=== PATIENT | female | born 1995 | race Caucasian/White ===

== ENCOUNTER 2018-05-25 21:37 | Outpatient (REF) | payer MEDICARE, MEDICAID, SELFPAY ==
[2018-05-27 12:26] LABS: Chlamydia Result Negative; GC Result Negative; Specimen Description URINE
== END 2018-05-25 21:57 ==
LOC: NCHCN 21:37
PROVIDERS: PCP Family Medicine; Visit Provider Family Medicine
DX: Z11.3 Encounter for screening for infections with a predominantly sexual mode of transmission (principal)
CPT/HCPCS: 87491; 87591

== ENCOUNTER 2019-04-11 11:39 | Outpatient (REF) | payer MEDICARE, MEDICAID, SELFPAY ==
[2019-04-11 21:52] LABS: TSH 1.39 uIU/mL (0.36-3.74)
[2019-04-11 21:58] LABS: Hemoglobin A1C 5.6 % (4.5-6.2)
[2019-04-11 22:02] LABS: HCG Quant, Pregnancy < 1 mIU/mL (1-3)
[2019-04-13 09:50] LABS: FSH 7.6 mIU/mL (See Note); Prolactin 9.4 ng/mL (See Table)
[2019-04-13 14:29] LABS: Chlamydia Result Negative (Negative)
[2019-04-13 16:17] LABS: GC Result Negative (Negative)
[2019-04-14 14:19] LABS: Testosterone, Total 51 ng/dL (8-60)
== END 2019-04-11 11:59 ==
LOC: NCHCN 11:39
PROVIDERS: PCP Family Medicine; Visit Provider Registered Nurse
DX: E66.9 Obesity, unspecified (principal); Z86.32 Personal history of gestational diabetes; Z11.3 Encounter for screening for infections with a predominantly sexual mode of transmission; N91.1 Secondary amenorrhea
CPT/HCPCS: 84403; 87491; 87591; 83001; 83036; 84146; 84443; 84702

== ENCOUNTER 2022-12-01 11:40 | Outpatient (REF) | payer MEDICAID, SELFPAY | END 2022-12-01 11:41 | disposition home or self-care (01) | LOC: LBN 11:40 | PROVIDERS: PCP Family Medicine; Visit Provider Advanced Practice Midwife | DX: N93.9 Abnormal uterine and vaginal bleeding, unspecified (principal) | CPT/HCPCS: 87480; 87510; 87660 ==

== ENCOUNTER 2022-12-08 03:10 | Outpatient (CLI) | payer MEDICAID, SELFPAY ==
[2022-12-08 14:49] LABS: Panorama Kit Sent via Fed Ex
[2022-12-08 14:55] LABS: Abs Immature Grans 0.05 10^3/uL (0.0-0.06); Absolute Basophil Count 0.02 10^3/uL (0.0-0.2); Absolute Eosinophil Count 0.04 10^3/uL (0.0-0.7); Absolute Lymphocyte Count 1.98 10^3/uL (1.2-3.4); Absolute Monocyte Count 0.28 10^3/uL (0.1-0.8); Basophils % 0.2; Eosinophils % 0.4; HCT 39.7 % (36.0-46.0); HGB 13.4 g/dL (11.2-15.7); Immature Grans % 0.5; Lymphocytes % 18.1; MCH 29.5 pg (27.0-33.0); MCHC 33.8 % (32.0-36.0); MCV 87 fL (80-95); MPV 9.2 fL (8.0-11.0); Monocytes % 2.6; Neutrophils % 78.2; Platelet Count 221 10^3/uL (130-400); RBC 4.55 10^6/uL (3.93-5.22); RDW 12.7 % (11.7-14.6); RDW-SD 40.4 fL; WBC 10.96 10^3/uL (4.4-10.8)
[2022-12-08 14:59] LABS: Absolute Neutrophil Count 8.57 10^3/uL (1.2-6.7)
[2022-12-08 15:01] LABS: *AMPHETAMINES SCREEN URINE Negative (Negative); *BARBITURATES SCREEN URINE Negative (Negative); *BENZODIAZEPINES SCREEN URINE Negative (Negative); Cannabinoids THC Negative (Negative); Cocaine Screen,Urine Negative (Negative); METHADONE URINE SCREEN Negative (Negative); OPIATES URINE SCREEN Negative (Negative); Tricyclic Antidepressants Negative (Negative)
[2022-12-08 15:09] LABS: Glucose,1 Hr (Glucola) 133 mg/dL (80-140)
[2022-12-09 11:26] LABS: Rubella IgG Ab (UVM) Positive (See Note); Varicella IgG Antibody Positive (See Note)
[2022-12-09 11:36] LABS: Hepatitis B Surface Ag Negative (Negative); Hepatitis C Ab w Rflx HCV PCR Negative (Negative)
[2022-12-09 12:28] LABS: HIV-1/2 Ag & Ab Screen Negative (Negative)
[2022-12-10 17:48] LABS: Syphilis IgG w/Reflex Nonreactive (Nonreactive)
[2022-12-13 05:32] LABS: Buprenorphine Negative ng/mL (Cutoff: 5.0); Norbuprenorphine Negative ng/mL (Cutoff: 2.5)
[2022-12-18 15:18] LABS: Result Summary NEGATIVE; Specimen WB Whole Blood
== END 2022-12-08 03:11 | disposition home or self-care (01) ==
PROVIDERS: PCP Family Medicine; Visit Provider Advanced Practice Midwife
DX: Z34.91 Encounter for supervision of normal pregnancy, unspecified, first trimester; R82.998 Other abnormal findings in urine
CPT/HCPCS: 36415; 80307; 80348; 81220; 81222; 82950; 86787; 86803; 86850; 86900; 86901; 87340; 87389; 85025; 86762; 86780; 87086

== ENCOUNTER 2022-12-28 21:17 | Emergency (ER) | payer MEDICAID, SELFPAY ==
[2022-12-28 21:25] VITALS: BP 152/75; PULSE 73; RESP 20; TEMP 36.8; O2SAT 99
[2022-12-28] MEDS: Normal Saline 1,000 ML 1000 ML IV (22:23)
[2022-12-28 22:30] LABS: Abs Immature Grans 0.08 10^3/uL (0.0-0.06); Absolute Basophil Count 0.03 10^3/uL (0.0-0.2); Absolute Eosinophil Count 0.06 10^3/uL (0.0-0.7); Absolute Lymphocyte Count 2.49 10^3/uL (1.2-3.4); Absolute Monocyte Count 0.58 10^3/uL (0.1-0.8); Basophils % 0.3; Eosinophils % 0.5; HCT 38.4 % (36.0-46.0); HGB 12.9 g/dL (11.2-15.7); Immature Grans % 0.7; Lymphocytes % 21.6; MCH 29.1 pg (27.0-33.0); MCHC 33.6 % (32.0-36.0); MCV 87 fL (80-95); MPV 9.1 fL (8.0-11.0); Neutrophils % 71.9; Platelet Count 236 10^3/uL (130-400); RBC 4.44 10^6/uL (3.93-5.22); RDW 12.8 % (11.7-14.6); WBC 11.55 10^3/uL (4.4-10.8)
[2022-12-28 22:40] LABS: Bilirubin Negative (Negative); Blood Trace-intact (Negative); Clarity Sl Cloudy (Clear); Glucose Negative (Negative); Ketones Negative (Negative); Leukocyte Esterase Small (Negative); Nitrite Negative (Negative); Urobilinogen 0.2 mg/dL (Up to 0.2)
[2022-12-28 22:49] LABS: Bacteria Few HPF (Negative); C & S Indicated? No/Sq. Contamination; Crystals Negative HPF (Negative); Epithelial Cells Many HPF (Negative); Mucus Negative (Negative); RBC 0-2 HPF (0-2)
[2022-12-28 23:03] LABS: ALT 17 U/L (14-59); AST 14 U/L (15-37); Albumin 3.4 g/dL (3.4-5.0); Alkaline Phosphatase 73 U/L (46-116); Anion Gap 10.6 mmol/L (3-11); BUN 6 mg/dL (7-18); Bilirubin, Total 0.3 mg/dL (0.2-1.0); CO2 26.4 mmol/L (21.0-32.0); CREATININE 0.7 mg/dL (0.55-1.02); Calcium 9.1 mg/dL (8.5-10.1); Chloride 100 mmol/L (98-107); Estimated GFR 119.99 (mL/min/1.73m2); Glucose 98 mg/dL (74-106); Magnesium 1.7 mg/dL (1.8-2.4); Potassium 3.5 mmol/L (3.5-5.1); Sodium 137 mmol/L (136-145); Total Protein 7.7 g/dL (6.4-8.2)
[2022-12-28 23:07] LABS: HCG Quant, Pregnancy 29508 mIU/mL (1-3)
--- NOTE | 2022-12-28 23:27 | W.ED.GENAD ---
Discharge Plan Disposition Patient Disposition: Home Discharge Details Clinical Impression: Vaginal spotting, Primary Care Provider: Adelita Marr ED Provider: Jarvis Bullard Home Meds and New Rx's Prescriptions: Continued aspirin 81 mg tablet,delayed release (DR/EC) 81 mg PO DAILY Qty: 90 3RF Rx Instructions: one tab daily and 2 tabs every other day, start at 12 wks [facility] Nourish Pls 120 mcg- 33.3 mg tablet,chewable 1 tab PO DAILY Qty: 90 3RF Rx Instructions: May substitute for any chewable vitamin with folic acid Discharge Instructions Additional Instructions: At this time unofficial bedside ultrasound shows a appropriate heart rate and appropriate movements. Please continue to monitor your symptoms return immediately for any new or significant worsening of your symptoms otherwise follow-up with [facility] along with your ultrasound that was already ordered for tomorrow. Referrals: [facility] [Provider Group] (As previously arranged) Discharge Data Discharge Date/Time-TO BE ENTERED AT DEPARTURE: 12/29/22 00:01 Medical Decision Making Patient presenting to the emergency department for chief complaint of spotting during . Patient reports that last week she started having some spotting during her which she is approximately 14 weeks along. Patient denies all other symptoms except for some mild abdominal cramping and low back pain. Patient was seen by [facility] late last week for same issue and no emergent findings were noted and patient is pending a ultrasound tomorrow. Physical exam is unremarkable, of note we deferred any vaginal exam at this time. We will plan on checking patient's labs, urinalysis, and heart tones. Reviewed patient's labs and patient has slight leukocytosis and elevated neutrophils otherwise nondiagnostic, CMP shows BUN of 6, mag slightly low at 1.7 which we will orally replete and slightly low AST of 14 otherwise nondiagnostic labs, urinalysis does show trace intact blood and small amount of leukocyte Estrace but specimen does look contaminated with significant amount of epithelial cells. I doubt patient has a urinary tract infection at this time. Beta quant is 29,508. And patient is O+ did perform unofficial bedside ultrasound and did see positive movements with normal-appearing heart rate. Doppler was utilized by nursing staff and heart tones [id number] We will plan on discharging patient for follow-up and official ultrasound tomorrow but did discussed return and follow-up precautions to the emergency department. After discussion of diagnosis and plan of care patient has no further needs, questions, or concerns and states clear understanding to return to the emergency department for any worsening symptoms. This documentation was generated using F-Origination system, please disregard any oddities of phrase or misspellings. HPI General Mode of arrival: ambulatory. Date/Time Provider Initiated Documentation: 12/28/22 21:34. Limitations to Documentation: no limitations. Information obtained by: patient, family, RN notes reviewed and old records reviewed. History of Present Illness 27 year old F presents to the emergency department with the chief complaint of Spotting during , described as mild and similar to prior episodes, Patient started experiencing this day(s) (5) and it has been intermittent. No relieving factors improve symptom(s), Patient notes no other symptoms.. Patient did receive the following treatments prior to arrival, none Related Data Home Medications Medication Instructions Recorded Confirmed multivit with minerals-folic acid 1 tab PO DAILY #90 tabs 10/22/22 12/28/22 120 mcg-dha 33.3 mg chewable tablet ([facility] Nourish Plus) aspirin 81 mg tablet,delayed 81 mg PO DAILY #90 tabs 12/08/22 12/28/22 release Previous Rx's Medication Instructions Recorded multivit with minerals-folic acid 1 tab PO DAILY #90 tabs 10/22/22 120 mcg-dha 33.3 mg chewable tablet ([place] Good Start Nourish Plus) aspirin 81 mg tablet,delayed 81 mg PO DAILY #90 tabs 12/08/22 release Allergies Allergy/AdvReac Type Severity Reaction Status Date / Time Penicillins Allergy Unknown Skin Rash Unverified 12/29/22 13:25 General Stated Complaint: Abd Prob ANGELIC: 3 Review of Systems Cardiovascular Cardiovascular: Denies chest pain, Denies syncope and Denies lightheadedness Gastrointestinal Gastrointestinal: Denies abdominal pain, Reports constipation, Denies diarrhea, Denies nausea and Denies vomiting Genitourinary Genitourinary: Reports as per HPI, Denies hematuria and Denies dysuria Musculoskeletal Musculoskeletal: Reports back pain Integumentary/Breasts Skin/Breast: Denies rash Neurologic Neurologic: Denies syncope PFSH All Active Problems (Updated 08/21/23 @ 23:38 by Jarvis Bullard NP) Vaginal spotting (Acute) @ 13 wks Penicillin adverse reaction (Acute) (Acute) Anxiety and depression (Chronic) Surgical History No pertinent past surgical history Social History Smoking/Tobacco Use Status: Never Smoking risk assessment performed?: Yes Alcohol Intake: current Alcohol Intake frequency: holidays/special occasions only Drug use: Never Household members: family Number of Children: 2 current occupation: Manager [employer] Sexually active: Yes Do you think of yourself as: straight/heterosexual Current gender identity: female Female Reproductive History Menstrual control method: none History History 3 Para 2 Hx # Term Pregnancies 2 Multiple births 0 Hx # Pregnancies 0 Ectopic pregnancies 0 AB induced 0 Hx Number of Living Children 2 AB spontaneous 0 Past Pregnancies Del. Date GA/Weeks # Preg Succ Route Wgt Sex Labor Lgth Anesthesia Location [facility] 12/13/15 39 No Yes vaginal 2948.35 g Female >24 hrs [facility] 05/23/17 40 No Yes vaginal 3345.244 g Female 3 hrs [facility] Delivery Date: 12/13/15 Last Updated by: Roxi Cruz GDM diet controlled, spont labor, pushed 3 hrs, unmedicated labor, not a good experience, [facility] Delivery Date: 05/23/17 Last Updated by: Roxi Cruz Fast , a good experience, [facility] Exam Const General: cooperative Orientation: alert, awake and oriented x3 Resp Effort & Inspection: normal respiratory effort and able to speak in complete sentences Auscultation: clear to auscultation bilaterally Cardio Rate: regular rate Rhythm: regular rhythm Heart Sounds: S1 normal and S2 normal GI Palpation: soft, not firm, no guarding, not rigid, no splenomegaly and nontender Auscultation: normal bowel sounds Back/Spine/Pelvis Back: no CVA tenderness Neuro General: patient alert, patient awake, patient oriented x3, gait normal and moves all extremities Course Vital Signs Vital signs: Vital Signs Temperature 36.8 C 12/28/22 21:25 Pulse 73 12/28/22 21:25 Respiratory Rate 20 12/28/22 21:25 Blood Pressure 152/75 H 12/28/22 21:25 Pulse Oximetry 99 12/28/22 21:25 Temperature 36.8 C 12/28/22 21:25 Temperature Source Skin 12/28/22 21:25 Pulse 73 12/28/22 21:25 Respiratory Rate 20 12/28/22 21:25 Respiratory Effort Normal 12/28/22 21:37 Blood Pressure 152/75 H 12/28/22 21:25 Blood Pressure Position Sitting 12/28/22 21:25 Pulse Oximetry 99 12/28/22 21:25 Lab/Test Results Lab/Test Results: Laboratory Tests Range/Units 12/28/22 12/28/22 12/28/22 21:30 22:20 22:20 WBC (4.4-10.8) 10^3/uL 11.55 H RBC (3.93-5.22) 10^6/uL 4.44 Hgb (11.2-15.7) g/dL 12.9 Hct (36.0-46.0) % 38.4 MCV (80-95) fL 87 MCH (27.0-33.0) pg 29.1 MCHC (32.0-36.0) % 33.6 RDW (11.7-14.6) % 12.8 Plt Count (130-400) 10^3/uL 236 MPV (8.0-11.0) fL 9.1 Immature Gran % 0.7 Neutrophils % 71.9 Lymphocytes % 21.6 Monocytes % 5.0 Eosinophils % 0.5 Basophils % 0.3 Nucleated RBC % (0.0-0.3) % 0.0 Absolute Neutrophils (1.2-6.7) 10^3/uL 8.30 H Absolute Lymphocytes (1.2-3.4) 10^3/uL 2.49 Absolute Monocytes (0.1-0.8) 10^3/uL 0.58 Absolute Eosinophils (0.0-0.7) 10^3/uL 0.06 Absolute Basophils (0.0-0.2) 10^3/uL 0.03 Sodium (136-145) mmol/L 137 Potassium (3.5-5.1) mmol/L 3.5 Chloride (98-107) mmol/L 100 Carbon Dioxide (21.0-32.0) mmol/L 26.4 Anion Gap (3-11) mmol/L 10.6 BUN (7-18) mg/dL 6 L Creatinine (0.55-1.02) mg/dL 0.7 Est GFR (CKD-EPI 2020) (mL/min/1.73m2) 119.99 Glucose (74-106) mg/dL 98 Calcium (8.5-10.1) mg/dL 9.1 Magnesium (1.8-2.4) mg/dL 1.7 L Total Bilirubin (0.2-1.0) mg/dL 0.3 AST (15-37) U/L 14 L ALT (14-59) U/L 17 Alkaline Phosphatase (46-116) U/L 73 Total Protein (6.4-8.2) g/dL 7.7 Albumin (3.4-5.0) g/dL 3.4 Beta HCG, Quant (1-3) mIU/mL 32033 H Urine Color (Yellow) Yellow Urine Clarity (Clear) Sl Cloudy Urine pH (5-8) 7.0 Ur Specific [place] (1.005-1.025) 1.010 Urine Protein (Negative) mg/dL Negative Urine Ketones (Negative) mg/dL Negative Urine Blood (Negative) Trace-intact H Urine Nitrite (Negative) Negative Urine Bilirubin (Negative) Negative Urine Urobilinogen (Up to 0.2) mg/dL 0.2 Ur Leukocyte Esterase (Negative) Small H Urine RBC (0-2) HPF 0-2 Urine WBC (0-5) HPF 5-10 Ur Epithelial Cells (Negative) HPF Many Urine Crystals (Negative) HPF Negative Urine Bacteria (Negative) HPF Few Urine Mucus (Negative) Negative Ur Culture Indicated? No/Sq. Contamination Urine Glucose (Negative) mg/dL Negative Patient ABO/Rh Range/Units 12/28/22 22:20 WBC (4.4-10.8) 10^3/uL RBC (3.93-5.22) 10^6/uL Hgb (11.2-15.7) g/dL Hct (36.0-46.0) % MCV (80-95) fL MCH (27.0-33.0) pg MCHC (32.0-36.0) % RDW (11.7-14.6) % Plt Count (130-400) 10^3/uL MPV (8.0-11.0) fL Immature Gran % Neutrophils % Lymphocytes % Monocytes % Eosinophils % Basophils % Nucleated RBC % (0.0-0.3) % Absolute Neutrophils (1.2-6.7) 10^3/uL Absolute Lymphocytes (1.2-3.4) 10^3/uL Absolute Monocytes (0.1-0.8) 10^3/uL Absolute Eosinophils (0.0-0.7) 10^3/uL Absolute Basophils (0.0-0.2) 10^3/uL Sodium (136-145) mmol/L Potassium (3.5-5.1) mmol/L Chloride (98-107) mmol/L Carbon Dioxide (21.0-32.0) mmol/L Anion Gap (3-11) mmol/L BUN (7-18) mg/dL Creatinine (0.55-1.02) mg/dL Est GFR (CKD-EPI 2020) (mL/min/1.73m2) Glucose (74-106) mg/dL Calcium (8.5-10.1) mg/dL Magnesium (1.8-2.4) mg/dL Total Bilirubin (0.2-1.0) mg/dL AST (15-37) U/L ALT (14-59) U/L Alkaline Phosphatase (46-116) U/L Total Protein (6.4-8.2) g/dL Albumin (3.4-5.0) g/dL Beta HCG, Quant (1-3) mIU/mL Urine Color (Yellow) Urine Clarity (Clear) Urine pH (5-8) Ur Specific [place] (1.005-1.025) Urine Protein (Negative) mg/dL Urine Ketones (Negative) mg/dL Urine Blood (Negative) Urine Nitrite (Negative) Urine Bilirubin (Negative) Urine Urobilinogen (Up to 0.2) mg/dL Ur Leukocyte Esterase (Negative) Urine RBC (0-2) HPF Urine WBC (0-5) HPF Ur Epithelial Cells (Negative) HPF Urine Crystals (Negative) HPF Urine Bacteria (Negative) HPF Urine Mucus (Negative) Ur Culture Indicated? Urine Glucose (Negative) mg/dL Patient ABO/Rh O Positive
[2022-12-28] MEDS: Magnesium Oxide 400 MG TAB PO (23:57)
[2022-12-29] VITALS: BP 140/70; PULSE 70; RESP 16; O2SAT 98
== END 2022-12-29 00:01 | disposition home or self-care (01) ==
PROVIDERS: Emergency Provider Nurse Practitioner Family; PCP Family Medicine
DX: R10.9 Unspecified abdominal pain (principal); O26.851 Spotting complicating pregnancy, first trimester; Z3A.12 12 weeks gestation of pregnancy
CPT/HCPCS: 36415; 80053; 86900; 86901; 96360; 99284; 81003; 81015; 83735; 84702; 85025

== ENCOUNTER → 2022-12-29 12:38 | Outpatient (CLI) | payer MEDICAID, SELFPAY ==
--- NOTE | 2022-12-29 08:25 | DI.US_ITS ---
Exam(s) US OB CERVICAL LENGTH EXAM: US OB CERVICAL LENGTH CLINICAL HISTORY: bleeding and cramping at 14 weeks, vaginal spotting, N93.9, Z34.90. TECHNIQUE: Transvaginal cervical length determination ultrasound was performed. COMPARISON: US POCUS EXAM from 12/01/2022 FINDINGS: There is a single viable intrauterine gestation with cardiac activity identified-141 BPM. Plac enta is anterior-fundal. No evidence of placenta previa. Distance from the tip of the placenta to t he internal cervical os is 5.9 cm on today's study. Cervical length measurements average 4.7 cm 3 measurements were obtained including 4.6 cm, 4.7 cm and 4.8 cm. The cervical canal is closed but there is trace fluid within the endocervical canal noted. Dating parameters places at approximately 15 weeks and 2 days gestational age implying LEOBARDO of 06/20/2023. BPD measures 15 weeks and 1 day Head circumference measures 15 weeks and 1 day Abdominal circumference measures 15 weeks and 3 days Femur length measures 15 weeks and 2 days IMPRESSION: Cervical length is 4.7. The endocervical is closed. There is trace amount of fluid in the endocervical canal. DATA REPOSITORY:
== END ==
PROVIDERS: PCP Family Medicine; Visit Provider Advanced Practice Midwife
DX: N93.9 Abnormal uterine and vaginal bleeding, unspecified (principal)
CPT/HCPCS: 76815

== ENCOUNTER → 2023-02-01 01:36 | Outpatient (CLI) | payer MEDICAID, SELFPAY ==
--- NOTE | 2023-02-01 08:15 | DI.US_ITS ---
Exam(s) US OB 2-3 TRIMESTER EXAM: US OB 2-3 TRIMESTER CLINICAL HISTORY: 19 week anatomy survey,Z34.91,Z34.90. TECHNIQUE: Transabdominal obstetrical ultrasound was performed. COMPARISON: US US OB CERVICAL LENGTH from 12/29/2022 FINDINGS: There is a single viable intrauterine gestation with cardiac activity identified-131 bpm. Amniotic fluid: There is a normal amount of amniotic fluid. Placental location: The placenta is anterior grade 1,with no evidence of placenta previa.Distance fro m tip of placenta to the internal cervical os is 6 cm on today's study ANATOMY: A 3 vessel umbilical cord is seen. A four-chamber cardiac view was obtained. Right and left ventricular outflow tracts were imaged. There are no obvious abnormalities of the spinal column evident. There is no obvious abnormal ity of the anterior abdominal wall. stomach and urinary bladder are identified and there is no evidence of hydronephrosis. No abnormalities of the upper lip region are identified. No evidence of choroid plexus cysts i n the brain. Dating parameters place this at approximately 19 weeks and 3 days gestational age. BPD measures 18 weeks and 6 days HC measures 19 weeks and 3 days AC measures 19 weeks and 2 days FL measures 19 weeks and 6 days Estimated weight is 297 gm-0 pounds, 10 ounces Fetus is at the 67th percentile on the Hadlock scale. IMPRESSION:: Single viable intrauterine gestation which is approximately 19 weeks and 3 days gestati onal age, implying an LEOBARDO of 06/25/2023. There are no obvious anomalies evident on today's study. The placenta is anterior with no evidence of placenta previa. There is a normal amount of amniotic fluid. DATA REPOSITORY:
== END ==
PROVIDERS: PCP Family Medicine; Visit Provider Advanced Practice Midwife
DX: Z34.91 Encounter for supervision of normal pregnancy, unspecified, first trimester
CPT/HCPCS: 76805

== ENCOUNTER 2023-03-15 14:30 | Outpatient (CLI) | payer MEDICAID, SELFPAY ==
--- OUTSIDE RECORDS SUMMARY | 2023-03-15 14:33 | XMS_ITS | CCD ---
Author Name Unknown Address [address] [place] [address] [id number] Organization Unknown Address [address], [place] [id number] Care Team Providers Care Yard Demurrage Clerk Name Role Phone WIL BECKMAN Attending Physician [phone] WIL BECKMAN Rounding (Secondary) Physician [phone] Vital Signs Unknown or Not Available. Allergies Allergy Code Allergy Type Reaction Status PENICILLINS (CLASS) 98617 Drug allergy UNKNOWN Act jayne Procedures Unknown or Not Available. History of Immunizations Unknown or Not Available. Problems Unknown or Not Available. Results Unknown or Not Available. Active Medications Unknown or Not Available. Medications Administered During Visit Unknown or Not Available. Encounters Encounter Diagnosis Diagnosis Code Start Date Refusal of treatment by patient [id number] 04/30/2021 Social History Smoking Status Code Start Date End Date Never smoker [id number] Patient Decision Aids Unknown or Not Available. Discharge Instructions You were admitted to [facility] on 04/30/2021 09:07 with a principal diagnosis of Procedure and treatment not carried out because of patient's decision for other reasons You were discharged from [facility] on 04/30/2021 08:29 Should you have any questions prior to discharge, please contact a member of your healthcare team. If you have left the hospital and have any questions, please contact your primary care physician. Chief Complaint and Reason For Visit Unknown or Not Available. Function Status Unknown or Not Available. Plan of Care Unknown or Not Available. Referral/Transition of Care Unknown or Not Available.
[2023-03-15 15:06] VITALS: BP 126/63; PULSE 68; TEMP 36.8
[2023-03-15 15:51] VITALS: BP 126/63; PULSE 68
--- NOTE | 2023-03-15 16:28 | W.OBNST ---
Date of service: 03/15/23 Time of Service: 16:28 NST Evaluation Reason for NST Reasons for Nonstress Test: DECREASED MOVEMENT Gestational Age Gestational Age in Weeks and Days: 25 Weeks and 1Days Test and Monitor Explained Test/Monitor Explained: Test Explained and Monitor Explained Vital Signs Blood Pressure: 126/63 Pulse: 68 Temperature: 98.2 F Urine Results Urine Protein: Negative Urine Ketones: Negative Urine Glucose: Negative Urine Blood: Negative NST Information Date on Monitor: 03/15/23 Time on Monitor: 15:27 Date off Monitor: 03/15/23 Time off Monitor: 15:49 Total Time on Monitor: 22 NST Interventions: PO Hydration Contraction Frequency: 0 NST Evaluation Patient States Movement: Present FHR Baseline: 130 Variability: Moderate 6-25 bpm Accelerations: 15x15 Decelerations: None NST Results: Reactive Note Ultrasound Done: N/A. NST Note NST Reviewed and Verified by: Roxi Cruz
[2023-03-15 16:29] VITALS: BP 126/63; PULSE 68; TEMP 36.8
== END 2023-03-15 16:04 ==
LOC: BCD 14:32 → OBS 14:54
PROVIDERS: PCP Family Medicine; Visit Provider Advanced Practice Midwife
DX: O36.8131 Decreased fetal movements, third trimester, fetus 1 (principal); Z3A.25 25 weeks gestation of pregnancy
CPT/HCPCS: 59025

== ENCOUNTER 2023-03-29 04:13 | Outpatient (CLI) | payer MEDICAID, SELFPAY ==
--- OUTSIDE RECORDS SUMMARY | 2023-03-29 04:14 | XMS_ITS | CCD ---
Author Name Unknown Address [address] [place] [address] [id number] Organization Unknown Address [address], [place] [id number] Care Team Providers Care Health Plan Manager Name Role Phone WIL BECKMAN Attending Physician [phone] WIL BECKMAN Rounding (Secondary) Physician [phone] Vital Signs Unknown or Not Available. Allergies Allergy Code Allergy Type Reaction Status PENICILLINS (CLASS) 51147 Drug allergy UNKNOWN Act jayne Procedures Unknown or Not Available. History of Immunizations Unknown or Not Available. Problems Unknown or Not Available. Results Unknown or Not Available. Active Medications Unknown or Not Available. Medications Administered During Visit Unknown or Not Available. Encounters Encounter Diagnosis Diagnosis Code Start Date Refusal of treatment by patient [id number] 04/30/2021 Social History Smoking Status Code Start Date End Date Never smoker [id number] Patient Decision Aids Unknown or Not Available. Discharge Instructions You were admitted to [facility] on 04/30/2021 09:07 with a principal diagnosis of Procedure and treatment not carried out because of patient's decision for other reasons You were discharged from [facility] on 04/30/2021 08:29 Should you have [...]
[2023-03-29 11:21] LABS: HCT 35.2 % (36.0-46.0); HGB 11.9 g/dL (11.2-15.7); MCH 29.6 pg (27.0-33.0); MCHC 33.8 % (32.0-36.0); MCV 88 fL (80-95); MPV 8.7 fL (8.0-11.0); Platelet Count 211 10^3/uL (130-400); RBC 4.02 10^6/uL (3.93-5.22); RDW 13.2 % (11.7-14.6); RDW-SD 42.2 fL; WBC 10.67 10^3/uL (4.4-10.8)
[2023-03-29 11:34] LABS: Glucose,1 Hr (Glucola) 134 mg/dL (80-140)
[2023-03-29 11:56] LABS: Hemoglobin A1C 5.4 % (<5.7)
== END 2023-03-29 04:14 | disposition home or self-care (01) ==
LOC: LBO 04:13
PROVIDERS: Advanced Practice Midwife; PCP Family Medicine; Visit Provider Advanced Practice Midwife
DX: Z34.93 Encounter for supervision of normal pregnancy, unspecified, third trimester (principal)
CPT/HCPCS: 36415; 82950; 85027; 83036

== ENCOUNTER → 2023-04-07 02:42 | Outpatient (CLI) | payer MEDICAID, SELFPAY ==
--- NOTE | 2023-04-07 08:45 | DI.US_ITS ---
Exam(s) US OB SOLOMON WEIGHT EXAM: US OB SOLOMON WEIGHT CLINICAL HISTORY: size greater than dates, VAGINAL SPOTTING, FUNDAL HT HIGH RISK FOR DATES. TECHNIQUE: Transabdominal obstetrical ultrasound performed. COMPARISON: US US OB 2-3 TRIMESTER from 02/01/2023 FINDINGS: Number of fetuses: 1 position: Varied throughout the examination. Placental location: ANTERIOR No evidence of previa. BIOMETRIC DATA: BPD: 7.03 cm, 28 weeks 2 days HC: 26.19 cm, 28 weeks 3 days AC: 24.34 cm, 28 weeks 4 days FL: 5.42 cm, 20 weeks 5 days EFW: 1251.6 g, 2 lb 12 oz, 42.9 % Composite Age: 28 weeks 4 days LEOBARDO: 06/26/2023 Heart Rate: 135 bpm Amniotic fluid index: 11.35 cm. Visually, amount of fluid is within normal limits. IMPRESSION: 1. Single live intrauterine gestation as above. 2. Estimated weight is 1252gms. This is the 43rd percentile. 3. Amniotic fluid index is 11.4 cm. Visually within normal limits. DATA REPOSITORY:
--- OUTSIDE RECORDS SUMMARY | 2023-04-07 11:28 | XMS_ITS | CCD ---
Author Name Unknown Address [address] [place] [address] [id number] Organization Unknown Address [address], [place] [id number] Care Team Providers Care Family Assessment Worker Name Role Phone WIL BECKMAN Attending Physician [phone] WIL BECKMAN Rounding (Secondary) Physician [phone] Vital Signs Unknown or Not Available. Allergies Allergy Code Allergy Type Reaction Status PENICILLINS (CLASS) 84099 Drug allergy UNKNOWN Act jayne Procedures Unknown or Not Available. History of Immunizations Unknown or Not Available. Problems Unknown or Not Available. Results Unknown or Not Available. Active Medications Unknown or Not Available. Medications Administered During Visit Unknown or Not Available. Encounters Encounter Diagnosis Diagnosis Code Start Date Refusal of treatment by patient [id number] 04/30/2021 Social History Smoking Status Code Start Date End Date Never smoker [id number] Patient Decision Aids Unknown or Not Available. Discharge Instructions You were admitted to [facility] on 04/30/2021 09:07 with a principal diagnosis of Procedure and treatment not carried out because of patient's decision for other reasons You were discharged from [facility] on 04/30/2021 08:29 Should you have any [...]
== END ==
PROVIDERS: PCP Family Medicine; Visit Provider Advanced Practice Midwife
DX: N93.9 Abnormal uterine and vaginal bleeding, unspecified (principal); Z34.93 Encounter for supervision of normal pregnancy, unspecified, third trimester
CPT/HCPCS: 76816

== ENCOUNTER 2023-04-14 13:48 | Outpatient (CLI) | payer MEDICAID, SELFPAY ==
--- OUTSIDE RECORDS SUMMARY | 2023-04-14 13:51 | XMS_ITS | CCD ---
Author Name Unknown Address [address] [place] [address] [id number] Organization Unknown Address [address], [place] [id number] Care Team Providers Care Furniture Upholstery Mechanic Name Role Phone STEPHANY ALEJANDRO MD Attending Physician [phone] MAGNO SCHROEDER Physician 1 0 ERICH DOBSON (Secondary) Physician [phone] Vital Signs Unknown or Not Available. Allergies Allergy Code Allergy Type Reaction Status PENICILLINS (CLASS) 04283 Drug allergy UNKNOWN Act jayne Procedures Unknown or Not Available. History of Immunizations Unknown or Not Available. Problems Unknown or Not Available. Results Unknown or Not Available. Active Medications Unknown or Not Available. Medications Administered During Visit Unknown or Not Available. Encounters Encounter Diagnosis Diagnosis Code Start Date Anxiety disorder, unspecified F419 Social History Smoking Status Code Start Date End Date Never smoker [id number] Patient Decision Aids Unknown or Not Available. Discharge Instructions You were admitted to [facility] on 01/21/2021 18:02 with a principal diagnosis of Anxiety disorder, unspecified You were discharged from [facility] on 01/21/2021 20:15 Should you have any questions prior to discharge, please contact a member of your healthcare team. If you have left the hospital and have any questions, please contact your primary care physician. Chief Complaint and Reason For Visit Chief Complaint Date of Onset DIZZY AND HAD NOSEBLEED Function Status Unknown or Not Available. Plan of Care Unknown or Not Available. Referral/Transition of Care Unknown or Not Available.
[2023-04-14 14:02] VITALS: BP 137/60; PULSE 82; TEMP 36.9
[2023-04-14 14:15] VITALS: BP 137/60; PULSE 82
[2023-04-15 08:48] VITALS: BP 137/60; PULSE 82; TEMP 36.9
--- NOTE | 2023-04-15 08:48 | W.OBNST ---
Date of service: 04/14/23 Time of Service: 15:00 NST Evaluation Reason for NST Reasons for Nonstress Test: OTHER, SEE COMMENT Reason for NST Other: decel heard in office Gestational Age Gestational Age in Weeks and Days: 29 Weeks and 3Days Test and Monitor Explained Test/Monitor Explained: Test Explained, Monitor Explained and Patient Verbalized Understanding Vital Signs Blood Pressure: 137/60 Pulse: 82 Temperature: 98.4 F NST Information Date on Monitor: 04/14/23 Time on Monitor: 13:55 Date off Monitor: 04/14/23 Time off Monitor: 15:09 Total Time on Monitor: 74 NST Interventions: PO Hydration NST Evaluation Patient States Movement: Present FHR Baseline: 115 Variability: Moderate 6-25 bpm Accelerations: 15x15 Decelerations: None NST Results: Reactive Note Ultrasound Done: N/A. NST Note NST Reviewed and Verified by: Roxi Cruz
== END 2023-04-14 15:20 | disposition home or self-care (01) ==
LOC: BCD 13:50 → OBS 14:01
PROVIDERS: PCP Family Medicine; Visit Provider Advanced Practice Midwife
DX: O36.8331 Maternal care for abnormalities of the fetal heart rate or rhythm, third trimester, fetus 1 (principal); Z3A.29 29 weeks gestation of pregnancy
CPT/HCPCS: 59025

== ENCOUNTER 2023-05-08 19:01 | Outpatient (CLI) | payer MEDICAID, SELFPAY ==
[2023-05-08 19:44] VITALS: BP 141/60; PULSE 77; TEMP 36.6
[2023-05-08 20:22] VITALS: BP 141/60; PULSE 73
[2023-05-08 20:23] VITALS: BP 143/62; PULSE 77
--- NOTE | 2023-05-08 20:33 | W.OBNST ---
Date of service: 05/08/23 Time of Service: 20:33 NST Evaluation Reason for NST Reasons for Nonstress Test: FALSE LABOR Gestational Age Gestational Age in Weeks and Days: 32 Weeks and 6Days Test and Monitor Explained Test/Monitor Explained: Test Explained Vital Signs Blood Pressure: 141/60 Pulse: 77 Temperature: 97.9 F Urine Results Urine Protein: Negative Urine Ketones: Negative Urine Glucose: Negative Urine Blood: Negative NST Information Date on Monitor: 05/08/23 Time on Monitor: 19:47 Date off Monitor: 05/08/23 Time off Monitor: 20:20 Total Time on Monitor: 33 NST Interventions: None and PO Hydration NST Evaluation Patient States Movement: Present FHR Baseline: 135 Variability: Moderate 6-25 bpm Accelerations: 15x15 Decelerations: None NST Results: Reactive Note Ultrasound Done: N/A. NST Note Note: NST done due to patient feeling tight belly most of the day. No vaginal bleeding or ROM. Denies TOM or visual disturbance. No contractions. FHR reactive. Will be seen in office this week. NST Reviewed and Verified by: Kassy Hernandez
[2023-05-08 20:34] VITALS: BP 141/60; PULSE 77; TEMP 36.6
== END 2023-05-08 20:31 | disposition home or self-care (01) ==
LOC: BCD 19:03 → OBS 19:43
PROVIDERS: PCP Family Medicine; Visit Provider Advanced Practice Midwife
DX: O47.02 False labor before 37 completed weeks of gestation, second trimester (principal); Z3A.32 32 weeks gestation of pregnancy
CPT/HCPCS: 59025

== ENCOUNTER 2023-05-19 11:32 | Outpatient (CLI) | payer MEDICAID, SELFPAY ==
[2023-05-19 11:43] VITALS: BP 136/65; PULSE 70
--- NOTE | 2023-05-19 12:41 | PDOC.NST_ITS ---
Date of service: 05/19/23 Time of Service: 12:30 NST Evaluation Reason for NST Reasons for Nonstress Test: LABOR Gestational Age Gestational Age in Weeks and Days: 34 Weeks and 3Days Test and Monitor Explained Test/Monitor Explained: Test Explained, Monitor Explained and Patient Verbalized Understanding Vital Signs Blood Pressure: 136/65 Pulse: 70 Urine Results Urine Protein: Negative Urine Ketones: Negative Urine Glucose: Negative Urine Blood: Negative NST Information Date on Monitor: 05/19/23 Time on Monitor: 11:30 Date off Monitor: 05/19/23 Time off Monitor: 11:55 Total Time on Monitor: 25 NST Interventions: None NST Evaluation Patient States Movement: Present FHR Baseline: 125 Variability: Moderate 6-25 bpm Accelerations: 15x15 Decelerations: None NST Results: Reactive Note Ultrasound Done: N/A. NST Note Note: NST is reactive and reassuring. She has been having some upper abdomen into upper back pain that at times is sharp and painful and other times more aggravating than painful. Denies LOF or bleeding. Reports pain is decreased now. Denies N/V and does not think this is related to food intake. She is reassured that baby is good and it does not appear that she is actively connor. Will give note to be out of work for the rest of the day and then she will return to work 05/20/23. If work becomes too difficult we may need to consider decrease in work or being out of work. Has appointment in [facility] office in <1 week. Will call if symptoms increase. ROLO NST Reviewed and Verified by: Kassy Hernandez
[2023-05-19 12:46] VITALS: BP 136/65; PULSE 70
== END 2023-05-19 12:15 | disposition home or self-care (01) ==
LOC: BCD 11:32 → OBS 11:33
PROVIDERS: PCP Family Medicine; Visit Provider Advanced Practice Midwife
DX: O47.03 False labor before 37 completed weeks of gestation, third trimester (principal); Z3A.34 34 weeks gestation of pregnancy
CPT/HCPCS: 59025

== ENCOUNTER 2023-05-27 09:47 | Outpatient (CLI) | payer MEDICAID, SELFPAY ==
[2023-05-27 10:59] VITALS: BP 137/67; PULSE 67; TEMP 37
[2023-05-27 11:03] VITALS: BP 137/67; PULSE 67
--- NOTE | 2023-05-27 15:42 | W.OBNST ---
Date of service: 05/27/23 Time of Service: 15:43 NST Evaluation Reason for NST Reasons for Nonstress Test: LABOR Reason for NST Other: question rupture Gestational Age Gestational Age in Weeks and Days: 35 Weeks and 4Days Test and Monitor Explained Test/Monitor Explained: Test Explained, Monitor Explained and Patient Verbalized Understanding Vital Signs Blood Pressure: 137/67 Pulse: 67 Temperature: 98.6 F NST Information Date on Monitor: 05/27/23 Time on Monitor: 10:56 Date off Monitor: 05/27/23 Time off Monitor: 11:24 Total Time on Monitor: 28 NST Interventions: PO Hydration Contraction Frequency: x1 NST Evaluation Patient States Movement: Present FHR Baseline: 125 Variability: Moderate 6-25 bpm Accelerations: 15x15 Decelerations: None NST Results: Reactive Note Ultrasound Done: N/A. NST Note Note: SSE performed, neg pooling, neg ferns, neg nitrizine Cvx appears perhaps 1 cm dilated, pt declined digital exam VPS sent Not in labor, discharged to home with counseling to keep groin folds soap/water clean & dry Triamcinolone cream 0.025% BID rx'ed for groin/thigh skin irritation NST Reviewed and Verified by: Roxi Cruz
[2023-05-27 15:45] VITALS: BP 137/67; PULSE 67; TEMP 37
== END 2023-05-27 12:09 ==
LOC: BCD 09:48 → OBS 09:58
PROVIDERS: PCP Family Medicine; Visit Provider Advanced Practice Midwife
DX: O60.03 Preterm labor without delivery, third trimester (principal); Z3A.35 35 weeks gestation of pregnancy
CPT/HCPCS: 59025; 87480; 87510; 87660

== ENCOUNTER 2023-05-31 15:46 | Outpatient (REF) | payer MEDICAID, SELFPAY ==
[2023-05-31 20:40] LABS: *AMPHETAMINES SCREEN URINE Negative (Negative); *BARBITURATES SCREEN URINE Negative (Negative); *BENZODIAZEPINES SCREEN URINE Negative (Negative); Cannabinoids THC Negative (Negative); Cocaine Screen,Urine Negative (Negative); METHADONE URINE SCREEN Negative (Negative); OPIATES URINE SCREEN Negative (Negative)
[2023-05-31 20:42] LABS: Tricyclic Antidepressants Negative (Negative)
[2023-06-07 13:48] LABS: Buprenorphine Negative ng/mL (Cutoff: 5.0); Norbuprenorphine Negative ng/mL (Cutoff: 2.5)
== END 2023-05-31 15:47 | disposition home or self-care (01) ==
LOC: LBN 15:46
PROVIDERS: PCP Family Medicine; Visit Provider Advanced Practice Midwife
DX: Z34.93 Encounter for supervision of normal pregnancy, unspecified, third trimester (principal)
CPT/HCPCS: 80307; 80348; 87081

== ENCOUNTER → 2023-06-02 01:51 | Outpatient (CLI) | payer MEDICAID, SELFPAY ==
--- NOTE | 2023-06-02 07:45 | DI.US_ITS ---
Exam(s) US OB SOLOMON WEIGHT EXAM: US OB SOLOMON WEIGHT CLINICAL HISTORY: ,size greater than dates.Z34.90. TECHNIQUE: Transabdominal obstetrical ultrasound performed. COMPARISON: US US OB SOLOMON WEIGHT from 04/07/2023 FINDINGS:: Number of fetuses: One. position: Vertex. Placental location: Anterior no evidence of previa. BIOMETRIC DATA: BPD: 84mm = 33+5 weeks HC: 314mm = 35+2 weeks AC: 333mm = 37+ 1 weeks FL: 73 mm = 37+ 4 weeks EFW: 2987 Gms = 59% Composite Age: 36+ 0 weeks LEOBARDO: 30 June 2023 Heart Rate: 140 BPM Amniotic fluid index: 15.1 cm. Amount of fluid is visually within normal limits. IMPRESSION: size and weight are within the expected range. DATA REPOSITORY:
== END ==
PROVIDERS: PCP Family Medicine; Visit Provider Advanced Practice Midwife
DX: Z34.93 Encounter for supervision of normal pregnancy, unspecified, third trimester (principal)
CPT/HCPCS: 76816

== ENCOUNTER 2023-06-10 15:57 | Outpatient (CLI) | payer MEDICAID, SELFPAY ==
[2023-06-10 16:24] VITALS: BP 141/74; PULSE 71; TEMP 37
[2023-06-10 17:16] VITALS: BP 141/74; PULSE 71
[2023-06-10 18:38] LABS: ROM Plus Negative
--- NOTE | 2023-06-10 19:51 | W.OBNST ---
Date of service: 06/10/23 Time of Service: 19:51 NST Evaluation Reason for NST Reasons for Nonstress Test: FALSE LABOR Gestational Age Gestational Age in Weeks and Days: 37 Weeks and 4Days Test and Monitor Explained Test/Monitor Explained: Test Explained, Monitor Explained and Patient Verbalized Understanding Vital Signs Blood Pressure: 141/74 Pulse: 71 Temperature: 98.6 F NST Information Date on Monitor: 06/10/23 Time on Monitor: 17:04 Date off Monitor: 06/10/23 Time off Monitor: 17:56 Total Time on Monitor: 52 NST Interventions: PO Hydration Contraction Frequency: x2 per palpation NST Evaluation Patient States Movement: Present FHR Baseline: 120 Variability: Moderate 6-25 bpm Accelerations: 15x15 Decelerations: None NST Results: Reactive Note Ultrasound Done: N/A. NST Note Note: ROM + was negative. VE difficult due to patient inability to tolerate VE, 1cm approximately, cervix is very posterior and medium consistency. NST was reactive and reassuring. I reviewed options of rest in over night with expectant management or discharge to home to return with active labor. Patient preferred to go home and will call to come back if contractions increase in frequency or intensity. ROLO NST Reviewed and Verified by: Kassy Hernandez
[2023-06-10 19:53] VITALS: BP 141/74; PULSE 71; TEMP 37
== END 2023-06-10 19:30 | disposition home or self-care (01) ==
LOC: BCD 15:58 → OBS 16:00
PROVIDERS: PCP Family Medicine; Visit Provider Advanced Practice Midwife
DX: O47.1 False labor at or after 37 completed weeks of gestation (principal); Z3A.38 38 weeks gestation of pregnancy
CPT/HCPCS: 84112; 59025

== ENCOUNTER 2023-06-12 00:06 | Outpatient (CLI) | payer MEDICAID, SELFPAY ==
[2023-06-12] VITALS (12 sets, daily range): BP systolic 127–140; BP diastolic 56–62; PULSE 16–74; TEMP 36.6; O2SAT 82–98
--- NOTE | 2023-06-12 08:36 | W.OBNST ---
Date of service: 06/12/23 Time of Service: 03:00 NST Evaluation Reason for NST Reasons for Nonstress Test: OTHER, SEE COMMENT Reason for NST Other: rule out labor Gestational Age Gestational Age in Weeks and Days: 37 Weeks and 6Days Test and Monitor Explained Test/Monitor Explained: Patient Verbalized Understanding Vital Signs Blood Pressure: 127/56 Pulse: 63 Temperature: 97.8 F Urine Results Urine Protein: Negative Urine Ketones: Negative Urine Glucose: Negative Urine Blood: Negative NST Information Date on Monitor: 06/12/23 Time on Monitor: 01:02 Date off Monitor: 06/12/23 Time off Monitor: 02:16 Total Time on Monitor: 74 NST Interventions: PO Hydration and Reposition Patient NST Evaluation Patient States Movement: Present FHR Baseline: 120 Variability: Moderate 6-25 bpm Accelerations: 15x15 Decelerations: None NST Results: Reactive Note Ultrasound Done: N/A. NST Note Note: Sweta reported regular strong contractions at home. She denies leaking fluid. Reactive NST. occasional contractions. 2 cms/ 50% -1. Signs of labor reviewed and Sweta returned home to rest. NST Reviewed and Verified by: Kassy Pichardo
== END 2023-06-12 02:20 ==
LOC: BCD 00:08 → OBS 01:01
PROVIDERS: PCP Family Medicine; Visit Provider Advanced Practice Midwife
DX: O47.1 False labor at or after 37 completed weeks of gestation (principal); Z3A.37 37 weeks gestation of pregnancy
CPT/HCPCS: 59025

== ENCOUNTER 2023-07-01 09:03 | Inpatient (IN) | payer MEDICAID, SELFPAY ==
[2023-07-01] VITALS (18 sets, daily range): BP systolic 109–156; BP diastolic 61–90; PULSE 0–94; RESP 17–18; TEMP 36.4–37.1
--- NOTE | 2023-07-01 09:10 | HPE_ITS ---
Date of service: 07/01/23 Time of Service: 09:10 Assessment and Plan Assessment and plan (1) Encounter for planned induction of labor: Status: Acute Assessment and plan: 1. Sweta presents for IOL at 40w4d per her desire and due to excessive weight gain in . 2. We have discussed methods of induction and associated risks and benefits as well as associated procedures, she would like to try a dose of misoprostol and if not actively laboring 4 hours later will change to pitocin. Rodriguez score 8. 3. I have reviewed that due to uterine size greater than dates we have some risk of PPH and shoulder dystocia. I have recommended active management of third stage and that IV be in place prior to delivery and she agrees to this plan and medications to be used for active management. 4. Will do admission, CBC and type and screen, she wants to eat breakfast and then will get initial tracing and move towards induction. 5. Will give Misoprostol 50 mcg PO and reassess 2-4 hours after dose 6. Expect NVD but will be prepared for possible shoulder dystocia and PPH. 7. Plan of care reviewed with Dr. Coles who is OB physician healthcare liaison today. KH (2) Excessive weight gain during in third trimester: Status: Acute OB-HPI Labor/Delivery History of Present Illness Reason for Visit: 40w4d gestation, induction of labor Chief Complaint: Scheduled Induction of Labor Indication for Induction: Post Date. LEOBARDO Calculator Estimated Delivery Date Method Current WG Current Estimate 06/27/23 Ultrasound #1 40w 4d Other Estimates 06/14/23 LMP (Uncertain) 42w 3d History of Present Expected Delivery Route/Plan - CNM FOB/ - Juanpablo Good Adeola Plans unmedicated , will use shower, likes room #301 GBS negative Specific Issues/Plan 1. Elevated BMI & hx GDM with 1st - early [id number], 28 oby=802 2. cfDNA screen=low risk x5 female, CF screen=negative 3. Low dose ASA for increased risk pre-e (BMI and fam hx) 4. Ref'ed to [facility] for PCN testing 5. Anxiety/depression, no meds, has a therapist, declines S referral. 6. FOB has hereditary hearing loss from , pt declines M consult. 7. Vaginal bleeding - OB 12/29- WNL 8. Pt requests PAP smear is delayed until 6 wks 9. Size greater than dates - 59%ile and SOLOMON 15.1 at 36 weeks Assessment: History Reviewed & Current Informed Consent Informed Consent: Augmentation of Labor, Induction of Labor and Risk,Benefits,Alternatives Discussed Review of Systems All systems reviewed & are unremarkable except as noted in HPI and below Genitourinary Comments: some contractions, no LOF or vaignal bleeding Musculoskeletal Comments: low back pain PFSH All Active Problems (Updated 07/01/23 @ 09:21 by Kassy Hernandez CNM) Excessive weight gain during in third trimester (Acute) Encounter for planned induction of labor (Acute) Fundal height high for dates (Acute) Vaginal spotting (Acute) @ 13 wks Penicillin adverse reaction (Acute) (Acute) Anxiety and depression (Chronic) Surgical History No pertinent past surgical history Social History Smoking/Tobacco Use Status: Never Smoking risk assessment performed?: Yes Alcohol Intake: current Alcohol Intake frequency: holidays/special occasions only Drug use: Never Household members: family Number of Children: 2 current occupation: Pipeline Operator Sexually active: Yes Do you think of yourself as: straight/heterosexual Current gender identity: female Female Reproductive History Menstrual control method: none History History 3 Para 2 Hx # Term Pregnancies 2 Multiple births 0 Hx # Pregnancies 0 Ectopic pregnancies 0 AB induced 0 Hx Number of Living Children 2 AB spontaneous 0 Past Pregnancies Del. Date GA/Weeks # Preg Succ Route Wgt Sex Labor Lgth Anesth esia Location [facility] 12/13/15 39 No Yes vaginal 6 lb 8 oz Female >24 hrs No rth [place] 05/23/17 40 No Yes vaginal 7 lb 6 oz Female 3 hrs [place] Delivery Date: 12/13/15 Last Updated by: Roxi Cruz GDM diet controlled, spont labor, pushed 3 hrs, unmedicated labor, not a good experience, [place] Delivery Date: 05/23/17 Last Updated by: Roxi Cruz Fast , a good experience, [facility] Allergies and Home Medications Allergies Allergy/AdvReac Type Severity Reaction Status Date / Time Penicillins Allergy Unknown Skin Rash Unverified 07/01/23 09:17 Home Medications Medication Instructions Recorded Confirmed Type multivit with minerals-folic acid 1 tab PO DAILY #90 tabs 10/22/22 06/28/23 Rx 120 mcg-dha 33.3 mg chewable tablet ([facility] Good Start Nourish Plus) aspirin 81 mg tablet,delayed 81 mg PO DAILY #90 tabs 12/08/22 06/28/23 Rx release docusate sodium 50 mg capsule 50 mg PO DAILY #30 caps 01/04/23 06/28/23 Rx (Colace Clear) triamcinolone acetonide 0.025 % 1 applic topical BID #15 grams 05/27/23 06/28/23 Rx topical cream Exam Constitutional Constitutional: no acute distress Detailed Labor and Delivery Exam Dilation: 3 Effacement (%): 60 station: -1 Position: JEFFREY Cervix position: posterior Consistency: soft Rodriguez Score: Cervical Points Exam 0 1 2 3 Dilation Closed 1-2cm 3-4 cm 5-6cm Effacement 0-30% 40-50% 60-70% 80% Consistency Firm Medium Soft Station -3 -2 -1,0 +1,+2 Position Posterior Mid Anterior RODRIGUEZ Score(Cervical Ripeness Score): 8 Amniotic Membrane Status: Intact Monitor Mode: Palpation Contraction Frequency(min): irregular Contraction Duration(sec): irregular Contraction Intensity: Mild Comments: currently off monitor. VE was done 06/28/23 deferred VE on admission HEENT Exam HEENT Exam: Normal Neck Exam Neck Exam: Normal (normal visual exam, full range of motion) Chest/Brest/Axilla Exam Chest Exam: Not Done Breast Exam Breast Exam: Not Done Respiratory Exam Respiratory Exam: Normal Cardiovascular Exam Cardiovascular Exam: Normal Abdominal Exam Abdominal Exam: Abnormal (size is greater than dates, last US at 36 weeks 56% normal SOLOMON, has had 52lb weight gain) Rectal Exam Rectal Exam: Not Done Exam Exam: Normal (on last exam 06/28/23 deferred this am until labor) Extremities Exam Extremities Exam: Normal (mild non pitting lower extremity edema) Back/Spine/Pelvis Exam Back Exam: Normal Pelvis Adequate: Yes Skin Exam Skin Exam: Normal Neurological Exam Neurological Exam: Normal Psychiatric Exam Psychiatric Exam: Normal (has anxiety but has good support and is coping well) Results Results Group Beta Strep: Negative Blood Type: O+ Rubella Status: Immune Varicella Immunity: Immune Lab Results: Hep B&C negative, HIV neg, Syphilis NR, GC CT negative, early GTT 133, 1 hour GTT at 28 weeks 134, CF negative, cfDNA low risk female. KH Risk Assessment Risk for Shoulder Dystocia Historical/Initial OB: POSITIVE FOR: Pre- BMI>30; NEGATIVE FOR: Pelvic Abnormality, Previous Shoulder Dystocia or Previous Macrosomia 36 Weeks: POSITIVE FOR: Maternal Weight Gain>40lbs; NEGATIVE FOR: Current Gestational DM or EFW>4500gms 40 Weeks: POSTIVE FOR: Maternal Weight Gain >40lb and Post Dates Delivery Plan @ 36wks: spont labor, , baby likely to be >1 lb larger than last baby (7'6) Delivery Plan @ 40 wks: IOL 40w4d, reviewed increased risk due to 52 lb weight gain and EFW 8lb 8oz by linda Risk for Pre-Eclampsia Date Initiated/Initials: start at 12 wks, JK Yes, if one or more: NEGATIVE FOR: Hx Pre-E/Gest HTN, Chronic HTN, Multiple Gestation, Pre-gestational DM, Renal Disease, Systemic Lupus or APA Syndrome Yes, if 2 or more: POSITIVE FOR: BMI>30 and Mother/Sister w/ Pre-E; NEGATIVE FOR: Nulliparity, Age>= 35 yrs, >10yr btwn pregnancies, ethinicty or Previous IUGR Risk for Post- Hemorrhage Initial: NEGATIVE FOR: Multiple Gestation, Previous PPH, Known Clotting Deficiency, Grand Multiparity or Anticoagulation 36 Weeks: NEGATIVE FOR: Anemia, hgb<10, Low platelets(thrombocytopenia), Gestational HTN or Pre-E, Polyhydraminios or EFW>4500gms 40 Weeks: NEGATIVE FOR: Anemia, hgb<10, Low platelets (thrombocytopenia), Gestation HTN or Pre-E, Polyhydraminios or EFW>4500gms At Risk?: Yes (52 lb weight gain, fundal height greater than dates) Counseled re: Active Management: Yes Date/Initials: 07/01/23 Risks Reviewed Risks Reviewed Upon Admission: Yes
[2023-07-01 10:17] LABS: HCT 37.7 % (36.0-46.0); HGB 12.5 g/dL (11.2-15.7); MCH 28.6 pg (27.0-33.0); MCHC 33.2 % (32.0-36.0); MCV 86 fL (80-95); MPV 9.3 fL (8.0-11.0); Platelet Count 210 10^3/uL (130-400); RBC 4.37 10^6/uL (3.93-5.22); RDW 14.4 % (11.7-14.6); RDW-SD 45.5 fL; WBC 8.42 10^3/uL (4.4-10.8)
[2023-07-01] MEDS: miSOPROStol 25 MCG TAB 50 MCG PO (10:17)
[2023-07-01] MEDS: Acetaminophen 325 MG TAB 650 MG PO ×2 (11:30→18:49)
[2023-07-01] MEDS: Acetaminophen 325 MG TAB PO (14:34)
--- NOTE | 2023-07-01 14:34 | W.PM.OBNL1 ---
Date of service: 07/01/23 Time of Service: 14:34 Informed Consent Informed Consent: Augmentation of Labor, Induction of Labor and Risk,Benefits,Alternatives Discussed Pelvic Exam Dilation: 4.5 Effacement (%): 70 station: -1 Cervix Position: posterior Consistency: soft Contractions Monitor Mode: Palpation Contraction Frequency(min): 3-5 Contraction Duration(sec): 60 Intensity: Moderate Fetus A Monitor: Doppler Heart Rate Baseline: 124 Amniotic Membrane Status: Ruptured Rupture Method: Artifical Amniotic Fluid: Clear Amount: large amount Date of Membrane Rupture: 07/01/23 Time of Membrane Rupture: 14:20 Assessment and Plan Assessment and plan (1) Encounter for planned induction of labor: Status: Acute Assessment and plan: 1. AROM perfromed, clear fluid. 2. IV saline lock placed to allow for active management of third stage 3. Expect NVD, if not in active labor in 1-2 hours will augment with pitocin. KH Objective Temp Pulse Resp BP 97.8 F 83 17 145/68 H 07/01/23 09:30 07/01/23 14:30 07/01/23 09:30 07/01/23 14:30 Laboratory Results WBC 8.42 10^3/uL (4.4-10.8) 07/01/23 10:07 RBC 4.37 10^6/uL (3.93-5.22) 07/01/23 10:07 Hgb 12.5 g/dL (11.2-15.7) 07/01/23 10:07 Hct 37.7 % (36.0-46.0) 07/01/23 10:07 MCV 86 fL (80-95) 07/01/23 10:07 MCH 28.6 pg (27.0-33.0) 07/01/23 10:07 MCHC 33.2 % (32.0-36.0) 07/01/23 10:07 RDW 14.4 % (11.7-14.6) 07/01/23 10:07 Plt Count 210 10^3/uL (130-400) 07/01/23 10:07 MPV 9.3 fL (8.0-11.0) 07/01/23 10:07 Patient ABO/Rh O Positive 07/01/23 10:07 Antibody Screen NEGATIVE 07/01/23 10:07 Vital Signs Reviewed: Yes Subjective Interval history since last seen: Sweta would prefer AROM instead of pitocin if possible. She is not having frequent contractions. Was happy to be 4-5 cm. KH Results Hemoglobin/Hematocrit: Hgb 12.5 g/dL (11.2-15.7) 07/01/23 10:07 Hct 37.7 % (36.0-46.0) 07/01/23 10:07
[2023-07-01] MEDS: Oxytocin 10 UNITS/ML VIAL IM (18:04)
--- NOTE | 2023-07-01 18:29 | OBVDS_ITS ---
Date of service: 07/01/23 Time of Service: 18:29 OB Labor/ Delivery Information Baby A Delivery Delivery Method: Spontaneaous Presentation: Cephalic Cephalic Position: Vertex Vertex Position: Left Occipital Anterior Cord Description-Baby A: 3 Vessels and Clamped/Cut (after 4 minutes of delayed cord clamping and pulsations ceased) Amniotic Fluid: Clear Estimated Blood Loss: 250 Delivery Outcome: Liveborn Infant Complications: none Transferred: Remains with Mother Note: Sweta presented for induction of labor at 40w4d for post due date and maternal request. She had a single dose of Misoprostol 50 mcg PO with some response then AROM at 1440 clear fluid with good response. FHR tracing was CAT I and after ROM we used doppler to auscultate. She felt urge to push at 1732 and second stage huddle was held. Her IV came out with her pushing movements and we planned to use Pitocin 10 units IM for active management of second stage. She pushed well. Baby girl Bethany October, delivered JEFFREY over intact perineum at 1802. She was brought to maternal abdomen and placed skin to skin with excellent bonding noted. After cord stopped pulsing I placed cord clamp and then miles clamp and Juanpablo MAHER cut the cord. Cord bloods were obtained while nursing gave Sweta 10 units Pitocin IM. Placenta delivered with maternal pushing effort at 1819, via hickman mechanism, intact. Fundus firmed to U-1 with massage. Perineum was inspected and noted to be intact. Bi Manual exam demonstrated firm lower uterine segment and no clots in vaginal. EBL 250cc. Sponge and instrument count are correct. Sweta plans to breast feed her daughter. Sweta and Juanpablo are planning PP female sterilization for contraception. Expect normal PP course and discharge in 24-48 hours. Providers Nurse Management Retail Intern: Kassy Mcneal Nurse: Bing James Nurse: Candis De La Garza Labor/Delivery Information Number of Babies in Womb: 1 Steroids Given: None Reason Steroids Not Administered: N/A Group Beta Strep: Negative Antibiotics Administered: No Rubella Status: Immune Blood Type: O+ Varicella Immunity: Immune Shoulder Dystocia: No Stages of Labor Onset of Labor Date: 07/01/23 Onset of Labor Time: 14:30 Complete Dilatation Date: 07/01/23 Complete Dilatation Time: 17:39 Labor - Stage 1 Duration: 3 hours and 9 minutes ROM Baby A: 07/01/23 ROM Baby A: 14:20 Infant Delivery Date-Baby A: 07/01/23 Infant Delivery Time-Baby A: 18:02 Labor Stage 2 Duration: 23 minutes Placenta Delivery Date-Baby A: 07/01/23 Total Length of Labor-Baby A: 3 hours and 32 minutes Baby A Gestational Status: Term (39-41.6 wks) Gestational Age in Weeks/Days: 40 Weeks and 4 Days
[2023-07-01] MEDS: Ibuprofen 600 MG TAB PO (18:49)
[2023-07-02] MEDS: Hamamelis Leaf/Glycerin 100 EACH BOX PR (02:26)
[2023-07-02] MEDS: Dibucaine 1% 28 GM TUBE (02:27)
[2023-07-02 07:30] VITALS: BP 129/68; PULSE 72; RESP 16; TEMP 36.5; O2SAT 98
[2023-07-02] MEDS: Docusate Sodium 100 MG CAP PO ×2 (08:23→20:15)
--- NOTE | 2023-07-02 08:26 | OBPPV_ITS ---
Date of service: 07/02/23 Time of Service: 08:26 Assessment and Plan Assessment and plan (1) care following vaginal delivery: Status: Acute Assessment and plan: 1. Normal course to date 2. Planning discharge tomorrow 3. Breast feeding well 4. Planning POP at 2 weeks PP as she is at risk for intercourse prior to 4 weeks PP. Subjective Subjective Interval history: Feeling well. Breast feeding going well. Denies pain. Normal lochia flow. Voiding without difficulty. Patient's Mood: happy [place] baby status: Doing well, Nursing well and Rooming in [place] feeding status: Exclusively breast feeding Exam Physical Exam Vital signs: Temp Pulse Resp BP 97.7 F 93 H 18 143/82 H 07/01/23 21:30 07/01/23 21:30 07/01/23 16:30 07/01/23 21:30 Vital Signs Reviewed: Yes Constitutional Constitutional: no acute distress, average body habitus and cooperative HEENT Exam HEENT Exam: Normal Neck Exam Neck Exam: Normal (normal visual inspection) Respiratory Exam Respiratory Exam: Normal Cardiovascular Exam Cardiovascular Exam: Normal Abdominal Exam Abdomen: Other (normal exam) Fundal Exam Fundus: Below Umbilicus and Firm Comment: small lochia noted. Rectal Exam Rectal Exam: Not Done Exam Perineum: Intact and Normal Extremities Exam Extremity Exam: Normal (denies calf tenderness) and Full ROM Back/Spine/Pelvis Exam Back Exam: Normal Skin Exam Skin Exam: Normal Neurological Exam Neurological Exam: Normal Psychiatric Exam Psychiatric Exam: Normal Results Hemoglobin/Hematocrit: Hgb 12.5 g/dL (11.2-15.7) 07/01/23 10:07 Hct 37.7 % (36.0-46.0) 07/01/23 10:07
[2023-07-02 11:45] VITALS: BP 141/75; PULSE 77; RESP 16; TEMP 36.4; O2SAT 97
[2023-07-02 16:40] VITALS: BP 143/81; PULSE 69; RESP 16; TEMP 36.7; O2SAT 99
[2023-07-02] MEDS: Ibuprofen 600 MG TAB PO (16:49)
[2023-07-02] MEDS: Acetaminophen 325 MG TAB 650 MG PO (16:49)
[2023-07-02 20:35] VITALS: BP 131/67; PULSE 66; TEMP 36.7
[2023-07-03] MEDS: Ibuprofen 600 MG TAB PO (05:09)
[2023-07-03] MEDS: Acetaminophen 325 MG TAB 650 MG PO ×2 (05:10→12:59)
[2023-07-03 07:45] VITALS: BP 134/74; PULSE 71; RESP 16; TEMP 36.5; O2SAT 99
[2023-07-03] MEDS: Docusate Sodium 100 MG CAP PO (08:33)
--- NOTE | 2023-07-03 11:47 | W.PM.OBPNV1 ---
Date of service: 07/03/23 Time of Service: 11:47 Assessment and Plan Assessment and plan (1) care following vaginal delivery: Status: Acute Assessment and plan: Caring for baby independently. Pain is managed well with oral analgesics. Voiding without difficulty. difficulties experienced, working with Darcie BARBER and Leyda SHELDON. A - stable mother and baby , Post day 2, history of anxiety and depression P - Discharge to home. Routine post instructions. VNA encouraged. She will have BP checked when the baby comes in for a weight check tomorrow. [facility] Subjective Subjective Patient comments: No complaints baby status: Doing well feeding status: Exclusively breast feeding Narrative: BP 131/67. BP range has been 120-140/ 60-90. She has been anxious at times due to feeding difficulties but baby latched on well this morning and she is feeling well. Exam Physical Exam Vital signs: Temp Pulse Resp BP Pulse Ox 98.1 F 66 16 131/67 99 07/02/23 20:35 07/02/23 20:35 07/02/23 16:40 07/02/23 20:35 07/02/23 16:40 Vital Signs Reviewed: Yes Constitutional Constitutional: no acute distress HEENT Exam HEENT Exam: Normal Respiratory Exam Respiratory Exam: Normal Cardiovascular Exam Cardiovascular Exam: Normal Fundal Exam Fundus: Below Umbilicus and Firm Rectal Exam Rectal Exam: Normal Exam Patient deferred: external exam Extremities Exam Extremity Exam: Normal Back/Spine/Pelvis Exam Back Exam: Normal Skin Exam Skin Exam: Normal Psychiatric Exam Psychiatric Exam: Normal Results Hemoglobin/Hematocrit: Hgb 12.5 g/dL (11.2-15.7) 07/01/23 10:07 Hct 37.7 % (36.0-46.0) 07/01/23 10:07
[2023-07-03 12:35] VITALS: BP 143/83; PULSE 75; RESP 16; TEMP 36.6; O2SAT 99
[2023-07-03] MEDS: Hamamelis Leaf/Glycerin 100 EACH BOX PR (12:59)
== END 2023-07-03 14:20 | disposition home or self-care (01) | DRG 807 ==
PROVIDERS: Admitting Provider Advanced Practice Midwife; PCP Family Medicine; Visit Provider Advanced Practice Midwife
DX: O48.0 Post-term pregnancy (principal); Z37.0 Single live birth; O26.03 Excessive weight gain in pregnancy, third trimester; Z3A.40 40 weeks gestation of pregnancy; O36.63X0 Maternal care for excessive fetal growth, third trimester, not applicable or unspecified; O99.344 Other mental disorders complicating childbirth; F41.8 Other specified anxiety disorders
CPT/HCPCS: 36415; 85027; 86850; 86900; 86901; 59200; J2590; J3490

== ENCOUNTER 2023-07-04 08:54 | Outpatient (CLI) | payer MEDICAID, SELFPAY ==
[2023-07-04 12:10] VITALS: BP 125/75; PULSE 79; RESP 16; O2SAT 100
--- NOTE | 2023-08-02 14:02 | PGE_ITS ---
Date of Service Date of service: 08/02/23 Time of Service: 16:00 Assessment and Plan Assessment and plan (1) care following vaginal delivery: Status: Acute Assessment and plan: BP rechecked by RN. No edema noted. 125/75. Follow up at [facility] at 2 weeks post . Subjective Subjective Patient reports: no new complaints Interval history since last seen: Sweta feels well. Her BP was 143/83 was yesterday and she returns today for BP recheck. Objective Last Vital Signs Pulse 79 07/04/23 12:10 Resp 16 07/04/23 12:10 BP 125/75 07/04/23 12:10 Pulse Ox 100 07/04/23 12:10 Time Spent with Patient Time Spent with Patient: <25 minutes Time was spent: preparing to see the patient(eg.review tests), obtaining and/or reviewing separately otained hiistory, referring, communicating with other health healthcare administrative assistant, indepentently interpreting results and care coordination
== END 2023-07-04 12:15 | disposition home or self-care (01) ==
LOC: BCD 08:58
PROVIDERS: PCP Family Medicine; Visit Provider Advanced Practice Midwife
DX: Z39.2 Encounter for routine postpartum follow-up (principal)
CPT/HCPCS: 99211

== ENCOUNTER 2023-12-20 02:41 | Outpatient (CLI) | payer MEDICAID, SELFPAY ==
--- NOTE | 2023-12-20 08:30 | DI.US_ITS ---
Exam(s) US OB 1ST TRIMESTER TWINS EXAM: US OB 1ST TRIMESTER TWINS CLINICAL HISTORY: dating, assignment of A and B,O10.90. COMPARISON: US US OB SOLOMON WEIGHT from 06/02/2023 US POCUS EXAM from 12/15/2023 TECHNIQUE: Transabdominal Transvaginal first trimester obstetrical ultrasound performed. FINDINGS: There is a twin gestation. The findings are most suggestive of a dichorionic diamniotic gestation. Sonographic images demonstrate a mulitple intrauterine gestation. Two yolk sacs and 2 poles are seen. Sonographically assessed gestational age based upon crown-rump length CRL of Fetus A: 19.7 mm is: 8 weeks 4 days for estimated date of delivery 07/27/2024. CRL of Fetus B: 19.4 mm is: 8 weeks 3 days for estimated date of delivery 07/28/2024. heart rate motion is Dopplered at: Fetus A: 150 bpm. Fetus B: 169 bpm. No free fluid identified. Both ovaries appear sonographically normal. Uterus: 10.7 long by 7.5 AP by 8.2 transverse cm Rt Ovary: 3.1 x 2.5 x 3.7 cm Lt Ovary: 2.5 x 2.6 x 1.7 cm IMPRESSION: There is a twin gestation estimated date of delivery is 07/27/2024-07/28/2024. DATA REPOSITORY:
== END 2023-12-20 03:01 ==
LOC: DI 02:41
PROVIDERS: PCP Family Medicine; Visit Provider Advanced Practice Midwife
DX: O30.90 Multiple gestation, unspecified, unspecified trimester (principal); Z34.90 Encounter for supervision of normal pregnancy, unspecified, unspecified trimester; O30.049 Twin pregnancy, dichorionic/diamniotic, unspecified trimester
CPT/HCPCS: 76801; 76802

== ENCOUNTER 2024-01-07 01:27 | Outpatient (CLI) | payer MEDICAID, SELFPAY ==
[2024-01-07 15:15] LABS: Panorama Kit Sent via Fed Ex
[2024-01-07 15:34] LABS: Abs Immature Grans 0.08 10^3/uL (0.0-0.06); Absolute Basophil Count 0.04 10^3/uL (0.0-0.2); Absolute Eosinophil Count 0.04 10^3/uL (0.0-0.7); Absolute Lymphocyte Count 2.03 10^3/uL (1.2-3.4); Absolute Monocyte Count 0.44 10^3/uL (0.1-0.8); Basophils % 0.4 %; Eosinophils % 0.4 %; HCT 39.3 % (36.0-46.0); HGB 13.2 g/dL (11.2-15.7); Immature Grans % 0.7 %; Lymphocytes % 18.6 %; MCH 29.2 pg (27.0-33.0); MCHC 33.6 % (32.0-36.0); MCV 87 fL (80-95); MPV 9.5 fL (8.0-11.0); Neutrophils % 75.9 %; Platelet Count 259 10^3/uL (130-400); RBC 4.52 10^6/uL (3.93-5.22); RDW 13.2 % (11.7-14.6); RDW-SD 41.8 fL; WBC 10.89 10^3/uL (4.4-10.8)
[2024-01-07 15:35] LABS: Absolute Neutrophil Count 8.27 10^3/uL (1.2-6.7)
[2024-01-07 23:12] LABS: HIV-1/2 Ag & Ab Screen Negative (Negative)
[2024-01-07 23:16] LABS: Hepatitis C Ab w Rflx HCV PCR Negative (Negative)
[2024-01-07 23:37] LABS: Hepatitis B Surface Ag Negative (Negative)
[2024-01-10 12:02] LABS: Rubella IgG Ab (UVM) Positive (See Note)
[2024-01-10 12:56] LABS: Chlamydia Result Negative (Negative); GC Result Negative (Negative)
[2024-01-10 14:08] LABS: Varicella IgG Antibody Equivocal (See Note)
[2024-01-10 15:34] LABS: Syphilis IgG w/Reflex Nonreactive (Nonreactive)
== END 2024-01-07 01:28 | disposition home or self-care (01) ==
LOC: LBO 01:27
PROVIDERS: PCP Family Medicine; Visit Provider Advanced Practice Midwife
DX: Z34.91 Encounter for supervision of normal pregnancy, unspecified, first trimester; Z3A.08 8 weeks gestation of pregnancy
CPT/HCPCS: 36415; 86787; 86803; 86850; 86900; 86901; 87340; 87389; 87491; 87591; 85025; 86762; 86780; 87086

== ENCOUNTER 2024-02-08 03:49 | Outpatient (CLI) | payer MEDICAID, SELFPAY ==
[2024-02-08 12:26] LABS: Glucose,1 Hr (Glucola) 110 mg/dL (80-140)
== END 2024-02-08 03:50 | disposition home or self-care (01) ==
LOC: LBO 03:49
PROVIDERS: PCP Family Medicine; Visit Provider Obstetrics & Gynecology
DX: O30.91 Multiple gestation, unspecified, first trimester (principal)
CPT/HCPCS: 36415; 82950

== ENCOUNTER 2024-03-03 01:55 | Outpatient (CLI) | payer MEDICAID, SELFPAY ==
--- NOTE | 2024-03-09 12:45 | TELEFU_ITS ---
Date of service: 03/03/24 Time of Service: 10:00 Nutrition Note NOTE: Sweta comes in for nutrition visit regarding impaired fasting glucose during - twin fetuses. Sweta is about 19 weeks gestation. Had gest diabetes with 1st and was in prediabetic glucose range after cochran before it improved. Finds fasting glucose to be 111 at highest - was told to stop checking by provider. reviewed some estimated goals such as aiming for about 2200 kcals and 200 g protein. Suggested ~ 280 g total carbs with a good 30g fiber as part of that total. we looked at prieto planning for her carb goal and trying to keep food choices as traditional or minimally processed as possible. She had few questions and just wanted some reassurance she is doing a decent job getting a variety of healthy food. Encouraged and promoted bfing as source of infants nutrition and working with industrial rehabilitation consultant in preparation for what to expect with nursing twins. Linh took my contact info along with a few education materials and will contact if needing help with more aggressive glucose mgt. Time Spent in Nutritional Counseling and Treatment: 25 min
== END 2024-03-03 01:56 | disposition home or self-care (01) ==
LOC: DS 01:56
PROVIDERS: PCP Family Medicine; Visit Provider Dietitian, Registered
DX: R73.09 Other abnormal glucose (principal)
CPT/HCPCS: 00123; 97802

== ENCOUNTER 2024-04-10 09:25 | Outpatient (CLI) | payer MEDICAID, SELFPAY ==
[2024-04-10 09:49] VITALS: BP 134/63; PULSE 84; TEMP 36.6
[2024-04-10 10:12] VITALS: BP 134/63; PULSE 84
[2024-04-10 10:12] LABS: HGB 11.5 g/dL (11.2-15.7); MCH 29.6 pg (27.0-33.0); MCHC 32.9 % (32.0-36.0); MCV 90 fL (80-95); MPV 9.2 fL (8.0-11.0); Platelet Count 204 10^3/uL (130-400); RBC 3.89 10^6/uL (3.93-5.22); RDW 13.6 % (11.7-14.6); WBC 10.25 10^3/uL (4.4-10.8)
[2024-04-10 10:23] VITALS: BP 128/62; PULSE 77
[2024-04-10 10:27] LABS: ALT 15 U/L (14-59); AST 12 U/L (15-37); Albumin 2.6 g/dL (3.4-5.0); Alkaline Phosphatase 99 U/L (46-116); BUN 6 mg/dL (7-18); Bilirubin, Total 0.25 mg/dL (0.2-1.0); CREATININE 0.8 mg/dL (0.55-1.02); Calcium 8.9 mg/dL (8.5-10.1); Chloride 106 mmol/L (98-107); Estimated GFR 100.96 (mL/min/1.73m2); Glucose 128 mg/dL (74-106); Potassium 3.7 mmol/L (3.5-5.1); Sodium 140 mmol/L (136-145); Total Protein 6.6 g/dL (6.4-8.2)
[2024-04-10 10:56] LABS: COMMENT (LAB VIEW ONLY) 49.57 mg/dL
[2024-04-10] MEDS: Acetaminophen 500 MG TAB PO (10:58)
[2024-04-10 11:03] LABS: PROTEIN < 6.0 mg/dL
--- NOTE | 2024-04-10 11:24 | W.OBNST ---
Date of service: 04/10/24 Time of Service: 11:25 NST Evaluation Reason for NST Reasons for Nonstress Test: GESTATIONAL HYPERTENSION Gestational Age Gestational Age in Weeks and Days: 24 Weeks and 5Days Test and Monitor Explained Test/Monitor Explained: Test Explained, Monitor Explained and Patient Verbalized Understanding Vital Signs Blood Pressure: 134/63 Pulse: 84 Temperature: 97.9 F Urine Results Urine Protein: Negative Urine Ketones: Negative Urine Glucose: Negative Urine Blood: Negative NST Information Date on Monitor: 04/10/24 Time on Monitor: 09:40 Date off Monitor: 04/10/24 Time off Monitor: 10:30 Total Time on Monitor: 50 NST Interventions: PO Hydration Contraction Frequency: 0 NST Evaluation Patient States Movement: Present FHR Baseline: 135 Variability: Moderate 6-25 bpm NST Results: Reactive NST Evaluation Baby B Patient States Movement: Present FHR Baseline: 140 Variability: Moderate 6-25 bpm NST Results: Reactive Note Ultrasound Done: N/A. NST Note Note: Patient seen on the center due to elevated blood pressure and some lower extremity edema. She also had a mild headache. This responded better to Tylenol. She had a category 1, reactive nonstress test appropriate for age of approximately 25 weeks. Baseline laboratory studies including CBC, CMP, and urine protein creatinine ratio were all normal. She will continue to monitor her symptomatology. Mitigation strategies discussed. She will be seen back in the office on for her routine care. All questions answered. NST Reviewed and Verified by: Lisa Coles
[2024-04-10 11:26] VITALS: BP 134/63; PULSE 84; TEMP 36.6
== END 2024-04-10 11:20 ==
LOC: BCD 09:29 → OBS 09:34
PROVIDERS: PCP Family Medicine; Visit Provider Obstetrics & Gynecology
DX: O13.2 Gestational [pregnancy-induced] hypertension without significant proteinuria, second trimester (principal); Z3A.24 24 weeks gestation of pregnancy; O12.02 Gestational edema, second trimester
CPT/HCPCS: 59025 ×2; 36415; 80053; 85027; 82565; 84156

== ENCOUNTER 2024-04-18 12:28 | Outpatient (CLI) | payer MEDICAID, SELFPAY ==
[2024-04-18 14:02] VITALS: BP 134/64; PULSE 76; TEMP 36.5
[2024-04-18 14:12] VITALS: BP 134/64; PULSE 76
[2024-04-18 14:39] LABS: Bilirubin Negative (Negative); Blood Negative (Negative); Clarity Sl Cloudy (Clear); Glucose Negative (Negative); Ketones Negative (Negative); Leukocyte Esterase Small (Negative); Nitrite Negative (Negative); Urobilinogen 0.2 mg/dL (Up to 0.2)
[2024-04-18 14:52] LABS: Epithelial Cells Many HPF (Negative); RBC 0-2 HPF (0-2)
[2024-04-18 14:53] LABS: Bacteria Few HPF (Negative); C & S Indicated? No/Sq. Contamination; Casts Negative LPF (Negative); Crystals Negative HPF (Negative); Mucus Negative (Negative)
--- NOTE | 2024-04-18 15:26 | W.OBNST ---
Date of service: 04/18/24 Time of Service: 15:26 NST Evaluation Reason for NST Reasons for Nonstress Test: FALSE LABOR Gestational Age Gestational Age in Weeks and Days: 25 Weeks and 6Days Test and Monitor Explained Test/Monitor Explained: Test Explained, Monitor Explained and Patient Verbalized Understanding Vital Signs Blood Pressure: 134/64 Pulse: 76 Temperature: 97.7 F Urine Results Urine Protein: Negative Urine Ketones: Negative Urine Glucose: Negative Urine Blood: Negative NST Information Time on Monitor: 13:53 Date off Monitor: 04/18/24 Time off Monitor: 14:36 NST Interventions: PO Hydration and Meal Given Contraction Frequency: 0 NST Evaluation Patient States Movement: Present FHR Baseline: 140 NST Results: Questionable NST Evaluation Baby B Patient States Movement: Present FHR Baseline: 150 Variability: Moderate 6-25 bpm Accelerations: 15x15 Decelerations: None NST Results: Reactive Note Ultrasound Done: N/A. NST Note Note: Pt presented to the with c/o abdominal pain x24hrs. She denies contractions. Reoports that the pain moves to her lumbar region. Pt had returned to work yesterday after 2 weeks off. She has a physical job and thinks that may have precipitated her discomfort. Pt reports not sleeping well in general and especially last night. No N/V or flank pain. PE: no focal uterine tenderness. No RUQ pain. SI joint discomfort to palpation however no referred pain. Pt declined VE. U/A Nitrite neg. LE + but contaminated sample. Pt given reassurance that she was not in labor and no evidence of UTI. She was instructed to use belt for support and keep her 04/20/24 [facility] appointment. NST Reviewed and Verified by: Tigist Arora
[2024-04-18 15:28] VITALS: BP 134/64; PULSE 76; TEMP 36.5
--- NOTE | 2024-04-19 10:53 | W.OBNST ---
Date of service: 04/19/24 Time of Service: 10:53 NST Evaluation Reason for NST Reasons for Nonstress Test: FALSE LABOR Gestational Age Gestational Age in Weeks and Days: 25 Weeks and 6Days Test and Monitor Explained Test/Monitor Explained: Test Explained, Monitor Explained and Patient Verbalized Understanding Vital Signs Blood Pressure: 134/64 Pulse: 76 Temperature: 97.7 F Urine Results Urine Protein: Negative Urine Ketones: Negative Urine Glucose: Negative Urine Blood: Negative NST Information Date on Monitor: 04/18/24 Time on Monitor: 13:53 Date off Monitor: 04/18/24 Time off Monitor: 14:36 Total Time on Monitor: 43 NST Interventions: PO Hydration and Meal Given Contraction Frequency: 0 NST Evaluation Patient States Movement: Present FHR Baseline: 140 NST Results: Questionable NST Evaluation Baby B Patient States Movement: Present FHR Baseline: 150 Variability: Moderate 6-25 bpm Accelerations: 15x15 Decelerations: None NST Results: Reactive Note NST Note Note: Pt reports non-focal abdominal pain. She describes it as deep in the pelvi
== END 2024-04-18 15:53 ==
LOC: BCD 12:28 → OBS 12:34
PROVIDERS: PCP Family Medicine; Visit Provider Obstetrics & Gynecology Gynecology
DX: O26.892 Other specified pregnancy related conditions, second trimester (principal); Z3A.25 25 weeks gestation of pregnancy; R10.819 Abdominal tenderness, unspecified site; M54.50 Low back pain, unspecified
CPT/HCPCS: 59025; 81003; 81015

== ENCOUNTER 2024-04-20 15:41 | Outpatient (CLI) | payer MEDICAID, SELFPAY ==
[2024-04-20 15:58] VITALS: BP 133/63; PULSE 75
[2024-04-20 15:59] VITALS: BP 133/63; PULSE 75; TEMP 36.8
--- NOTE | 2024-04-20 21:53 | W.OBNST ---
Date of service: 04/20/24 Time of Service: 16:00 NST Evaluation Reason for NST Reasons for Nonstress Test: OTHER, SEE COMMENT Gestational Age Gestational Age in Weeks and Days: 26 Weeks and 1Days Test and Monitor Explained Test/Monitor Explained: Test Explained, Monitor Explained and Patient Verbalized Understanding Vital Signs Blood Pressure: 133/63 Pulse: 75 Temperature: 98.2 F Urine Results Urine Protein: Negative Urine Ketones: Negative Urine Glucose: Negative Urine Blood: Negative NST Information Date on Monitor: 04/20/24 Time on Monitor: 15:49 Date off Monitor: 04/20/24 Time off Monitor: 16:23 Total Time on Monitor: 34 NST Interventions: PO Hydration Contraction Frequency: 0 NST Evaluation Patient States Movement: Present FHR Baseline: 130 Variability: Moderate 6-25 bpm Accelerations: 10x10 Decelerations: None NST Results: Reactive NST Evaluation Baby B Patient States Movement: Present FHR Baseline: 135 Variability: Moderate 6-25 bpm Accelerations: 15x15 Decelerations: None NST Results: Reactive Note Ultrasound Done: N/A. NST Note NST Reviewed and Verified by: Joana Carmen
[2024-04-20 21:54] VITALS: BP 133/63; PULSE 75; TEMP 36.8
== END 2024-04-20 16:34 ==
LOC: BCD 15:43 → OBS 15:44
PROVIDERS: PCP Family Medicine; Visit Provider Obstetrics & Gynecology
DX: O26.892 Other specified pregnancy related conditions, second trimester (principal); O30.042 Twin pregnancy, dichorionic/diamniotic, second trimester; R10.2 Pelvic and perineal pain; Z3A.26 26 weeks gestation of pregnancy; M54.50 Low back pain, unspecified
CPT/HCPCS: 59025 ×2

== ENCOUNTER 2024-05-01 02:33 | Outpatient (CLI) | payer MEDICAID, SELFPAY ==
[2024-05-01 11:20] LABS: Abs Immature Grans 0.13 10^3/uL (0.0-0.06); Absolute Basophil Count 0.04 10^3/uL (0.0-0.2); Absolute Lymphocyte Count 1.39 10^3/uL (1.2-3.4); Absolute Monocyte Count 0.56 10^3/uL (0.1-0.8); Absolute Neutrophil Count 9.63 10^3/uL (1.2-6.7); Basophils % 0.3 %; Eosinophils % 1.7 %; HCT 36.5 % (36.0-46.0); HGB 12.2 g/dL (11.2-15.7); Immature Grans % 1.1 %; Lymphocytes % 11.6 %; MCHC 33.4 % (32.0-36.0); MCV 87 fL (80-95); MPV 9.2 fL (8.0-11.0); Monocytes % 4.7 %; Neutrophils % 80.6 %; Platelet Count 229 10^3/uL (130-400); RDW 13.4 % (11.7-14.6); RDW-SD 41.7 fL; WBC 11.95 10^3/uL (4.4-10.8)
[2024-05-01 11:22] LABS: Glucose,1 Hr (Glucola) 136 mg/dL (80-140)
== END 2024-05-01 02:34 | disposition home or self-care (01) ==
LOC: LBO 02:33
PROVIDERS: PCP Family Medicine; Visit Provider Obstetrics & Gynecology
DX: Z34.93 Encounter for supervision of normal pregnancy, unspecified, third trimester (principal)
CPT/HCPCS: 36415; 82950; 85025

== ENCOUNTER 2024-05-18 04:45 | Outpatient (CLI) | payer MEDICAID, SELFPAY ==
[2024-05-18 10:34] LABS: Glucose 1 Hour 229 mg/dL
[2024-05-18 13:06] LABS: Glucose 3 Hour 93 mg/dL
== END 2024-05-18 04:46 | disposition home or self-care (01) ==
LOC: LBO 04:45
PROVIDERS: PCP Family Medicine; Visit Provider Obstetrics & Gynecology
DX: Z34.93 Encounter for supervision of normal pregnancy, unspecified, third trimester (principal)
CPT/HCPCS: 36415; 82951

== ENCOUNTER 2024-06-07 11:21 | Outpatient (CLI) | payer MEDICAID, SELFPAY ==
[2024-06-07 13:43] VITALS: BP 165/70; PULSE 78
[2024-06-07 13:55] VITALS: BP 141/63; PULSE 82
[2024-06-07] MEDS: Acetaminophen 500 MG TAB PO (14:10)
[2024-06-07 14:19] VITALS: BP 141/63; PULSE 82; TEMP 36.9
[2024-06-07 14:57] LABS: HCT 34.5 % (36.0-46.0); HGB 10.9 g/dL (11.2-15.7); MCH 27.5 pg (27.0-33.0); MCHC 31.6 % (32.0-36.0); MCV 87 fL (80-95); MPV 9.5 fL (8.0-11.0); Platelet Count 188 10^3/uL (130-400); RBC 3.96 10^6/uL (3.93-5.22); RDW 13.3 % (11.7-14.6); RDW-SD 42.2 fL; WBC 9.45 10^3/uL (4.4-10.8)
[2024-06-07 15:09] LABS: ALT 18 U/L (14-59); AST 14 U/L (15-37); Albumin 2.2 g/dL (3.4-5.0); Alkaline Phosphatase 165 U/L (46-116); Anion Gap 5.4 mmol/L (3-11); BUN 6 mg/dL (7-18); Bilirubin, Total 0.36 mg/dL (0.2-1.0); CO2 26.6 mmol/L (21.0-32.0); CREATININE 0.8 mg/dL (0.55-1.02); Calcium 8.8 mg/dL (8.5-10.1); Chloride 106 mmol/L (98-107); Estimated GFR 100.96 (mL/min/1.73m2); Glucose 115 mg/dL (74-106); Sodium 138 mmol/L (136-145); Total Protein 6.2 g/dL (6.4-8.2)
[2024-06-07 20:34] VITALS: BP 141/63; PULSE 82; TEMP 36.9
--- NOTE | 2024-06-07 20:34 | W.OBNST ---
Date of service: 06/07/24 Time of Service: 15:00 NST Evaluation Reason for NST Reasons for Nonstress Test: MULTIPLE GESTATION Gestational Age Gestational Age in Weeks and Days: 33 Weeks and 0Days Test and Monitor Explained Test/Monitor Explained: Test Explained, Monitor Explained and Patient Verbalized Understanding Vital Signs Blood Pressure: 141/63 Pulse: 82 Temperature: 98.4 F Urine Results Urine Protein: Negative Urine Ketones: Negative Urine Glucose: Negative Urine Blood: Negative NST Information Date on Monitor: 06/07/24 Time on Monitor: 13:39 Date off Monitor: 06/07/24 Time off Monitor: 14:09 Total Time on Monitor: 30 NST Interventions: Notify Provider Contraction Frequency: Occasional NST Evaluation Patient States Movement: Present FHR Baseline: 125 Variability: Moderate 6-25 bpm Accelerations: 15x15 Decelerations: None NST Results: Reactive NST Evaluation Baby B Patient States Movement: Present FHR Baseline: 130 Variability: Moderate 6-25 bpm Accelerations: 15x15 Decelerations: None NST Results: Reactive Note Ultrasound Done: N/A. NST Note Note: Patient called the office this afternoon to report onset of a headache localized behind her eyes bilaterally she denied any history of migraines. I recommended she present to the center for further evaluation. On examination alert awake and oriented x 3 with excellent mentation. No sinus tenderness heart regular rate and rhythm lungs clear to auscultation bilaterally no focal abdominal tenderness labs were obtained normal CBC and normal CMP. Patient denied dehydration or excess glucose readings. Her fasting this morning was 101. She has not started her bedtime Novolin and insulin. NST was reactive. After period of observation she was discharged to home with instructions to take Tylenol 650 mg every 6 hours as needed and to follow-up on Wednesday with a repeat NST and to report her glucose fasting and postprandial after administering insulin this evening. NST Reviewed and Verified by: Tigist Arora
== END 2024-06-07 14:55 ==
LOC: BCD 11:24 → OBS 13:30
PROVIDERS: PCP Family Medicine; Visit Provider Obstetrics & Gynecology Gynecology
DX: O30.043 Twin pregnancy, dichorionic/diamniotic, third trimester (principal); R51.9 Headache, unspecified; Z3A.33 33 weeks gestation of pregnancy
CPT/HCPCS: 59025 ×2; 36415; 80053; 85027

== ENCOUNTER 2024-06-12 08:17 | Outpatient (CLI) | payer MEDICAID, SELFPAY ==
[2024-06-12 10:13] VITALS: BP 130/65; PULSE 82; TEMP 36.9
[2024-06-12 10:39] VITALS: BP 130/65; PULSE 82
--- NOTE | 2024-06-13 11:57 | W.OBNST ---
Date of service: 06/12/24 Time of Service: 10:30 NST Evaluation Reason for NST Reasons for Nonstress Test: MULTIPLE GESTATION Gestational Age Gestational Age in Weeks and Days: 33 Weeks and 5Days Test and Monitor Explained Test/Monitor Explained: Test Explained, Monitor Explained and Patient Verbalized Understanding Vital Signs Blood Pressure: 130/65 Pulse: 82 Temperature: 98.4 F NST Information Date on Monitor: 06/12/24 Time on Monitor: 10:00 Date off Monitor: 06/12/24 Time off Monitor: 11:07 Total Time on Monitor: 67 NST Interventions: PO Hydration and Reposition Patient NST Evaluation Patient States Movement: Present FHR Baseline: 140 Variability: Moderate 6-25 bpm Accelerations: 15x15 Decelerations: None NST Results: Reactive NST Evaluation Baby B Patient States Movement: Present FHR Baseline: 130 Variability: Moderate 6-25 bpm Accelerations: 15x15 Decelerations: None NST Results: Reactive Note Ultrasound Done: N/A. NST Note NST Reviewed and Verified by: Joana Carmen
[2024-06-13 11:58] VITALS: BP 130/65; PULSE 82; TEMP 36.9
== END 2024-06-12 11:08 | disposition other institution (70) ==
LOC: BCD 08:19 → OBS 10:12
PROVIDERS: PCP Family Medicine; Visit Provider Obstetrics & Gynecology
DX: O30.043 Twin pregnancy, dichorionic/diamniotic, third trimester (principal); Z3A.33 33 weeks gestation of pregnancy
CPT/HCPCS: 59025 ×2

== ENCOUNTER 2024-06-14 15:23 | Outpatient (CLI) | payer MEDICAID, SELFPAY ==
[2024-06-14 15:58] VITALS: BP 131/71; PULSE 73; TEMP 36.7
[2024-06-14 16:27] VITALS: BP 131/71; PULSE 73
--- NOTE | 2024-06-29 09:13 | W.OBNST ---
Date of service: 06/29/24 Time of Service: 09:14 NST Evaluation Reason for NST Reasons for Nonstress Test: GDM-INSULIN Gestational Age Gestational Age in Weeks and Days: 34 Weeks and 4Days Test and Monitor Explained Test/Monitor Explained: Test Explained and Monitor Explained Vital Signs Blood Pressure: 131/71 Pulse: 73 Temperature: 98.1 F Urine Results Urine Protein: Negative Urine Ketones: Negative Urine Glucose: Negative Urine Blood: Negative NST Information Date on Monitor: 06/14/24 Time on Monitor: 16:01 Date off Monitor: 06/14/24 Time off Monitor: 17:03 Total Time on Monitor: 62 NST Interventions: PO Hydration NST Evaluation Patient States Movement: Present FHR Baseline: 135 Variability: Moderate 6-25 bpm Accelerations: 15x15 Decelerations: None NST Results: Reactive NST Evaluation Baby B Patient States Movement: Present FHR Baseline: 135 Variability: Moderate 6-25 bpm Accelerations: 15x15 Decelerations: None NST Results: Reactive Note Ultrasound Done: N/A. NST Note Note: Reactive NST. Patient reports excellent glycemic control. She will continue twice weekly NSTs. NST Reviewed and Verified by: Tigist Arora
[2024-06-29 09:14] VITALS: BP 131/71; PULSE 73; TEMP 36.7
== END 2024-06-14 17:30 ==
LOC: BCD 15:25 → OBS 15:26 → BCD 15:55 → OBS 15:56
PROVIDERS: PCP Family Medicine; Visit Provider Obstetrics & Gynecology Gynecology
DX: O24.414 Gestational diabetes mellitus in pregnancy, insulin controlled (principal); Z3A.34 34 weeks gestation of pregnancy; O30.043 Twin pregnancy, dichorionic/diamniotic, third trimester
CPT/HCPCS: 59025 ×2

== ENCOUNTER 2024-06-18 22:01 | Inpatient (IN) | payer MEDICAID, SELFPAY ==
[2024-06-18 21:35] VITALS: BP 157/77; PULSE 81
[2024-06-18 21:36] LABS: ROM Plus Positive
[2024-06-18 22:06] LABS: Abs Immature Grans 0.08 10^3/uL (0.0-0.06); Absolute Basophil Count 0.03 10^3/uL (0.0-0.2); Absolute Eosinophil Count 0.06 10^3/uL (0.0-0.7); Absolute Lymphocyte Count 2.17 10^3/uL (1.2-3.4); Absolute Neutrophil Count 8.24 10^3/uL (1.2-6.7); Basophils % 0.3 %; Eosinophils % 0.5 %; HCT 34.3 % (36.0-46.0); HGB 11.1 g/dL (11.2-15.7); Immature Grans % 0.7 %; Lymphocytes % 19.1 %; MCH 27.7 pg (27.0-33.0); MCHC 32.4 % (32.0-36.0); MCV 86 fL (80-95); MPV 10.1 fL (8.0-11.0); Neutrophils % 72.4 %; Platelet Count 199 10^3/uL (130-400); RBC 4.01 10^6/uL (3.93-5.22); RDW 13.4 % (11.7-14.6); RDW-SD 41.4 fL; WBC 11.38 10^3/uL (4.4-10.8)
--- NOTE | 2024-06-18 22:15 | W.PM.OBHPL1 ---
Date of service: 06/18/24 Time of Service: 22:15 Assessment and Plan Assessment and plan (1) Club foot of fetus affecting antepartum care of mother: Status: Acute (2) Dichorionic diamniotic twin , antepartum: Status: Acute Assessment and plan: History of concordant growth. Estimated weight twin a 4 pounds 7 ounces twin B 4 pounds 8 ounces. Vertex vertex presentation. (3) premature rupture of membranes: Status: Acute Assessment and plan: SROM estimated 0600 06/18/2024. Confirmed by ROM plus, ferning and nitrazine positive. Will initiate cephalosporin for GBS prophylaxis (4) labor: Status: Acute Assessment and plan: Cervical exam 3 cm on examination. Patient has been accepted in transfer to [facility] maternal- medicine service. The recommendation was to begin cephalosporin for GBS prophylaxis no magnesium for contraction no steroid prophylaxis. Patient has consented to transfer via ambulance. (5) GDM (gestational diabetes mellitus): Status: Acute Assessment and plan: Satisfactory glycemic control with 6 units of Novolin and at bedtime. OB-HPI Labor/Delivery History of Present Illness Reason for Visit: 34 W 4D EGA,SROM, labor Chief Complaint: Suspected Rupture of Membranes , Associated Signs and Symptoms of Suspected ROM: This morning. Positive ROM plus, positive nitrazine, positive ferning ; Suspected Labor. LEOBARDO Calculator Estimated Delivery Date Method Current WG Current Estimate 07/26/24 Ultrasound #1 34w 4d Other Estimates 07/21/24 LMP (Certain) 35w 2d 07/27/24 Ultrasound #2 34w 3d # 2 History of Present Expected Delivery Route/Plan Hopes for CAMERON's - , desires CNM involvement in PN care and deliveries FOB/ - Juanpablo Good (3rd & 4th child together) Varicella equivocal, offer vaccine Specific Issues/Plan 1. Close pregnancies: conception at 3 months 2. Twin gestation: di/di - MFM consultation. Growth ultrasound at 32 and 36 weeks. Growth at 28 weeks: Twin A - 26 percentile B, 39th percentile, 5% difference. - surveillance weeks 34 through 38. - Delivery at 38 weeks. 3. GDM (Elevated BMI & hx GDM with 1st ) - Low dose ASA for increased risk pre-e (BMI and fam hx) 4. cfDNA screen 01/07: insufficient sample. Low fraction. Redrawn at [facility] 02/2024 CF screen-previously negative 5. Penicillin allergy - GBS sensitivity____ 6. Anxiety/depression, no meds, has a therapist, declines S referral. 7. FOB has hereditary hearing loss from , offered MFM consult and she declines 8. 5-ps neg 9. Last pap 2017, scanned in , Repeat post partum____ 10. Twin A, right clubfoot Assessment: History Reviewed & Current Narrative: Patient reports loss of mucous plug earlier today. She continue have leakage of clear fluid increasing in amount and presented to the breast center with confirmed rupture of membranes at 34W 4D EGA. SVE 3 cm dilated 75% effaced -1 station vertex Informed Consent Informed Consent: Risk,Benefits,Alternatives Discussed (Discussed with patient need for transfer to tertiary care center if bed available.) Review of Systems All systems reviewed & are unremarkable except as noted in HPI and below PFSH All Active Problems (Updated 06/18/24 @ 22:44 by Tigist Arora MD) labor (Acute) premature rupture of membranes (Acute) GERD (gastroesophageal reflux disease) (Chronic) GDM (gestational diabetes mellitus) (Acute) Other social stressor (Acute) Financial insecurity (Acute) Club foot of fetus affecting antepartum care of mother (Acute) Right foot, twin A Dichorionic diamniotic twin , antepartum (Acute) Back pain affecting (Acute) Susceptible to varicella (non-immune), currently (Acute) Multiple gestation (Acute) (Acute) Anxiety and depression (Chronic) Medical History (Updated 06/18/24 @ 22:44 by Tigist Arora MD) Missed menses Penicillin adverse reaction Surgical History No pertinent past surgical history Family History (Updated 01/07/24 @ 14:50 by Kassy Pichardo CNM) Mother Depression Anxiety Pre-eclampsia, delivered Sister Pre-eclampsia, delivered Social History Smoking/Tobacco Use Status: Never Smoking risk assessment performed?: Yes Alcohol Intake: current Alcohol Intake frequency: holidays/special occasions only Drug use: Never Household members: family Housing: house Number of Children: 2 current occupation: Boat Outboard Engine Mechanic Sexually active: Yes Do you think of yourself as: straight/heterosexual Current gender identity: female Do you feel safe at home: Yes Do you feel safe in your relationship?: Yes Female Reproductive History Menstrual control method: none History History 4 Para 3 Hx # Term Pregnancies 3 Multiple births 0 Hx # Pregnancies 0 Ectopic pregnancies 0 AB induced 0 Hx Number of Living Children 3 AB spontaneous 0 Past Pregnancies Del. Date GA/Weeks # Preg Succ Route Wgt Sex Labor Lgth Anesthesia Location Prov Complic 12/13/15 39 No Yes vaginal 6 lb 8 oz Female >24 hrs [facility] 05/23/17 40 No Yes vaginal 7 lb 6 oz Female 3 hrs [facility] 07/01/23 40 No Yes vaginal 8 lb Female 3hrs 32min [facility] Delivery Date: 12/13/15 Last Updated by: Roxi Cruz GDM diet controlled, spont labor, pushed 3 hrs, unmedicated labor, not a good experience, [facility] Delivery Date: 05/23/17 Last Updated by: Roxi Cruz Fast , a good experience, [facility] Delivery Date: 07/01/23 Last Updated by: Roxi Cruz Elective induction, nml October Meds Allergies and Home Medications Allergies Allergy/AdvReac Type Severity Reaction Status Date / Time Penicillins Allergy Unknown Skin Rash Unverified 06/01/24 10:46 Home Medications ?Medication ?Instructions ?Recorded ?Confirmed ?Type docusate sodium 50 mg capsule 50 mg PO DAILY #30 caps 01/04/23 06/01/24 Rx (Colace Clear) triamcinolone acetonide 0.025 % 1 applic topical BID #15 grams 05/27/23 06/01/24 Rx topical cream no.118-ferrous fumarate 1 tab PO DAILY #90 tabs 11/25/23 06/01/24 Rx 29 mg-folic acid 1 mg chewable tablet (Se-Leonides 19 Chewable) blood-glucose meter (FreeStyle #1 ea 05/19/24 05/25/24 Rx Lite Meter kit) blood sugar diagnostic (FreeStyle #100 ea 05/25/24 05/25/24 Rx Test strips) lancets 33 gauge #100 ea 01/16/25 01/16/25 Rx pen needle, diabetic 29 gauge x #100 ea 05/30/24 Rx 1/2 (Ultra-Thin II Insulin Pen [place]) insulin NPH isoph U-100 human 100 6 unit (0.06 mL) subcut .bedtime 06/14/24 Rx unit/mL (3 mL) subcutaneous pen #15 mL (Novolin N FlexPen) omeprazole 40 mg capsule,delayed 40 mg PO BID #60 caps 06/14/24 Rx release Allergy/Medication Comments:: Rash with penicillin. Will use cephalosporin for GBS prophylaxis. Exam Physical Exam Vital signs: Pulse BP 81 157/77 H 06/18/24 21:35 06/18/24 21:35 Vital Signs Reviewed: Yes Notable Details: Systolic blood pressure 157. Detailed Labor and Delivery Exam Dilation: 3 Effacement (%): 75 station: -1 Position: OA Cervix position: mid Consistency: soft Rodriguez Score: Cervical Points Exam 0 1 2 3 Dilation Closed 1-2cm 3-4 cm 5-6cm Effacement 0-30% 40-50% 60-70% 80% Consistency Firm Medium Soft Station -3 -2 -1,0 +1,+2 Position Posterior Mid Anterior RODRIGUEZ Score(Cervical Ripeness Score): 8 Amniotic Membrane Status: Ruptured Rupture Method: Spontaneous Amniotic Fluid: Clear Pooling: Negative Nitrazine: Positive Ferning: Present ROM Plus: Positive Monitor Mode: External Contraction Frequency(min): Irregular Contraction Intensity: Mild Fetus A Heart Rate Baseline: 140 Monitor Accelerations: 15 X 15 Monitor Decelerations: None Variability: Moderate (6-25 BPM) Presentation: Cephalic (X 2) Categories: Category I Est. Weight: 4 lb 7 oz Est. Weight: 4 pounds 8 ounces twin B Date of Membrane Rupture: 06/18/24 Time of Membrane Rupture: 06:00 Fetus B Heart Rate Baseline: 140 Monitor Accelerations: 15 X 15 Monitor Decelerations: None Variability: Moderate (6-25 BPM) Presentation: Cephalic FA Categories: Category I Est. Weight: 4 lb 8 oz Date or Membrane Rupture: 06/18/24 Time of Membrane Rupture: 06:00 Neck Exam Neck Exam: Normal Chest/Brest/Axilla Exam Chest Exam: Not Done Respiratory Exam Respiratory Exam: Normal Cardiovascular Exam Cardiovascular Exam: Normal Abdominal Exam Abdominal Exam: Normal Rectal Exam Rectal Exam: Not Done Exam Exam: Normal Extremities Exam Extremities Exam: Normal Skin Exam Skin Exam: Not Done Neurological Exam Neurological Exam: Normal Psychiatric Exam Psychiatric Exam: Normal Results Results Group Beta Strep: Done-Result Unknown Blood Type: O+ Rubella Status: Immune Varicella Immunity: Equivocal Abnormal Lab Findings: Abnormal Labs 06/18/24 21:56 WBC 11.38 H Hgb 11.1 L Hct 34.3 L Absolute Neutrophils 8.24 H Ultrasound OB Ultrasound for presentation. Indication: Di/di twins vertex vertex Presentation: Cephalic. Exam complete. Risk Assessment Risk for Shoulder Dystocia Historical/Initial OB: POSITIVE FOR: Pre- BMI>30; NEGATIVE FOR: Pelvic Abnormality, Previous Shoulder Dystocia or Previous Macrosomia Risk for Pre-Eclampsia Date Initiated/Initials: start at 12 wks, KM Yes, if one or more: NEGATIVE FOR: Hx Pre-E/Gest HTN, Chronic HTN, Multiple Gestation, Pre-gestational DM, Renal Disease, Systemic Lupus or APA Syndrome Yes, if 2 or more: POSITIVE FOR: BMI>30 and Mother/Sister w/ Pre-E; NEGATIVE FOR: Nulliparity, Age>= 35 yrs, >10yr btwn pregnancies, ethinicty or Previous IUGR Risk for Post- Hemorrhage Initial: NEGATIVE FOR: Multiple Gestation, Previous PPH, Known Clotting Deficiency, Grand Multiparity or Anticoagulation Counseled re: Active Management: Yes Date/Initials: 07/01/23 Risks Reviewed Risks Reviewed Upon Admission: Yes
[2024-06-18 22:18] VITALS: BP 142/70; PULSE 75
[2024-06-18 22:22] LABS: ALT 16 U/L (14-59); AST 13 U/L (15-37); Albumin 2.4 g/dL (3.4-5.0); Alkaline Phosphatase 184 U/L (46-116); Anion Gap 7.2 mmol/L (3-11); BUN 12 mg/dL (7-18); Bilirubin, Total 0.37 mg/dL (0.2-1.0); CO2 24.8 mmol/L (21.0-32.0); CREATININE 0.9 mg/dL (0.55-1.02); Calcium 8.9 mg/dL (8.5-10.1); Chloride 107 mmol/L (98-107); Estimated GFR 87.65 (mL/min/1.73m2); Glucose 92 mg/dL (74-106); Sodium 139 mmol/L (136-145); Total Protein 6.5 g/dL (6.4-8.2)
[2024-06-18 22:38] LABS: COMMENT (LAB VIEW ONLY) 277.32 mg/dL; PROTEIN 74.8 mg/dL; Prot/Crea Ur Ratio 0.26
[2024-06-18] MEDS: ceFAZolin 3,000 MG in Normal Saline 100 ML 200 MG IVPB (22:56)
[2024-06-18] MEDS: Lactated Ringers 1,000 ML 150 ML IV (22:58)
--- NOTE | 2024-06-18 23:05 | DSE_ITS ---
Date of service: 06/18/24 Time of Service: 23:06 DS: Diagnosis Discharge Diagnosis (1) Club foot of fetus affecting antepartum care of mother: Status: Acute (2) Dichorionic diamniotic twin , antepartum: Status: Acute (3) premature rupture of membranes: Status: Acute (4) labor: Status: Acute Asessment and Plan: Pt has been accepted in transfer to [facility] service at [facility] Dr. Georgiana Hernandez MD accepting provider. (5) GDM (gestational diabetes mellitus): Status: Acute Discharge Plan Disposition Patient Disposition: Transfer-Acute Inpatient Care Specific Acute Inpt Facility: [facility] Condition: Stable Discharge Details Reason For Visit: 34 W 4D EGA,SROM, labor Admit Date/Time: 06/18/24 22:15 Admit Provider: Tigist Arora Attending Provider: Tigist Arora Primary Care Provider: Adelita Marr Hospital Course Hospital Course: Patient is a 29-year-old G4, P3 female currently 34W 4D EGA with Di Di twin gestation who contacted on-call provider today with report of possible rupture membranes. Upon admission to the center rupture mental brains was confirmed and sterile vaginal exam showed her to be 3 cm 75% effaced -1 station with vertex presentation of twin A ultrasound confirmed vertex twin B. Dr. Brandon Vaughn MD from maternal- medicine service [facility] was contacted and accept the patient in transfer. She was given cephalosporin for GBS prophylaxis. The GBS rectovaginal culture was sent to the lab at [facility]. Per [facility] recommendation no magnesium sulfate IV infusion was initiated nor betamethasone administered. Repeat vaginal exam at the time of discharge she remained 3 cm cervical effacement and's station unchanged. Home Meds and New Rx's Prescriptions: No Action Colace Clear 50 mg capsule 50 mg PO DAILY Qty: 30 4RF (DME) FreeStyle Test Strip See Rx Instructions .Route Qty: 100 5RF Rx Instructions: test 4 times a day. (DME) lancets 33 gauge misc See Rx Instructions .Route Qty: 100 3RF Rx Instructions: 4 times daily triamcinolone acetonide 0.025 % cream 1 applic topical BID Qty: 15 3RF Rx Instructions: apply thin layer to affected external skin twice per day Se- 19 Chewable 29 mg iron- 1 mg tablet,chewable 1 tab PO DAILY Qty: 90 4RF (DME) blood-glucose meter [FreeStyle Lite Meter] Kit See Rx Instructions .Route Qty: 1 0RF Rx Instructions: As directed (DME) pen needle, diabetic [Ultra-Thin II Ins Pen [place]] 29 gauge x 1/2 needle See Rx Instructions .Route Qty: 100 2RF Rx Instructions: 4 units sq at bedtime. omeprazole 40 mg capsule,delayed release(DR/EC) 40 mg PO BID Qty: 60 2RF Novolin N FlexPen 100 unit/mL (3 mL) insulin pen 6 unit subcut .bedtime Qty: 15 1RF Discharge Instructions Activity:: bedrest Equipment/Supplies:: IV fluids Diet:: Carb Counting Discharge Orders Discharge Orders: Discharge Order (Routine); Ordered 06/18/24 Ordered By: Tigist Arora DS: Summary Time Spent with Patient providing and/or coordinating discharge services: Greater than 30 minutes Status at Discharge Functional status at discharge: independent ambulation Overall status at discharge: other (stable.) Mental Status: mental status grossly normal Speech and Movement: speech and movement normal Mood: anxious mood Affect: anxious affect Quality:SDOH Health Related Social Needs: No Data to Display Exam Narrative Exam Narrative: Patient admitted to the center @ 34w4d EGA where spontaneous rupture of membranes was confirmed with ROM plus and positive nitrazine and ferning. GBS rectal vaginal culture was obtained and sent to the [facility] lab per recommendation of [facility] MFM provider. No cervical change from intial 3cm at time of presentation. FHR Category 1 x2. Transferred to [facility] via ambulance for avai lability of NICU. Stable at time of discharge. Const General: no acute distress Nutritional Appearance: well nourished Orientation: alert, awake and oriented x3 Resp Effort & Inspection: normal respiratory effort Auscultation: clear to auscultation bilaterally Cardio Rate: regular rate Rhythm: regular rhythm GI Inspection: normal to inspection Palpation: soft and nontender (no focal abdominal tenderness) Manual OB Exam: dilated 3, effaced 75%, station -1 and other (VTX/VTX by bedside u/s) Amniotic Fluid: clear Back/Spine/Pelvis Back: no CVA tenderness Skin General skin exam: no rashes or lesions noted Neuro Cognition: normal cognition Speech: speech normal Gait: normal gait Motor: muscle tone normal throughout DTR's: Rt Patellar: 0 and Lt Patellar: 0 Extrem General: normal to inspection Psych Appearance: grossly normal Mental Status: mental status grossly normal Speech and Movement: speech and movement normal Mood: anxious mood Affect: anxious affect Attitude: cooperative Thought Process: normal Thought Content: normal Insight: insight good Judgment: judgment good DS: Data Vitals/I&O Vitals and I&O: Vital Signs Pulse 75 06/18/24 22:18 Blood Pressure 142/70 H 06/18/24 22:18 Intake & Output 06/17/24 06/18/24 06/18/24 23:59 11:59 23:59 Output Total 100 / 100 Balance -100 / -100 Output: Urine 100 / 100 Data Completed and Pending Labs on day of discharge: Labs from last 24 hours 06/18/24 06/18/24 06/18/24 21:56 21:30 21:03 WBC 11.38 H RBC 4.01 Hgb 11.1 L Hct 34.3 L MCV 86 MCH 27.7 MCHC 32.4 RDW 13.4 Plt Count 199 MPV 10.1 Immature Gran % 0.7 Neutrophils % 72.4 Lymphocytes % 19.1 Monocytes % 7.0 Eosinophils % 0.5 Basophils % 0.3 Nucleated RBC % 0.0 Absolute Neutrophils 8.24 H Absolute Lymphocytes 2.17 Absolute Monocytes 0.80 Absolute Eosinophils 0.06 Absolute Basophils 0.03 Sodium 139 Potassium 4.0 Chloride 107 Carbon Dioxide 24.8 Anion Gap 7.2 BUN 12 Creatinine 0.9 Est GFR (CKD-EPI 2020) 87.65 Glucose 92 Calcium 8.9 Total Bilirubin 0.37 AST 13 L ALT 16 Alkaline Phosphatase 184 H Total Protein 6.5 Albumin 2.4 L Ur Random Creatinine 277.32 U Random Total Protein 74.8 U [place] Prot/Creat Ratio 0.26 Membranes Rupture Positive ABO/Rh O Positive Antibody Screen NEGATIVE PFSH All Active Problems (Updated 06/18/24 @ 22:44 by Tigist Arora MD) labor (Acute) premature rupture of membranes (Acute) GERD (gastroesophageal reflux disease) (Chronic) GDM (gestational diabetes mellitus) (Acute) Other social stressor (Acute) Financial insecurity (Acute) Club foot of fetus affecting antepartum care of mother (Acute) Right foot, twin A Dichorionic diamniotic twin , antepartum (Acute) Back pain affecting (Acute) Susceptible to varicella (non-immune), currently (Acute) Multiple gestation (Acute) (Acute) Anxiety and depression (Chronic) Medical History (Updated 06/18/24 @ 22:44 by Tigist Arora MD) Missed menses Penicillin adverse reaction Surgical History No pertinent past surgical history Family History (Updated 01/07/24 @ 14:50 by Kassy Pichardo CNM) Mother Depression Anxiety Pre-eclampsia, delivered Sister Pre-eclampsia, delivered Social History Smoking/Tobacco Use Status: Never Smoking risk assessment performed?: Yes Alcohol Intake: current Alcohol Intake frequency: holidays/special occasions only Drug use: Never Household members: family Housing: house Number of Children: 2 current occupation: Registration Clerk Sexually active: Yes Do you think of yourself as: straight/heterosexual Current gender identity: female Do you feel safe at home: Yes Do you feel safe in your relationship?: Yes Female Reproductive History Menstrual control method: none History History 4 Para 3 Hx # Term Pregnancies 3 Multiple births 0 Hx # Pregnancies 0 Ectopic pregnancies 0 AB induced 0 Hx Number of Living Children 3 AB spontaneous 0 Past Pregnancies Del. Date GA/Weeks # Preg Succ Route Wgt Sex Labor Lgth Anesth esia Location [facility] 12/13/15 39 No Yes vaginal 6 lb 8 oz Female >24 hrs No rth [place] 05/23/17 40 No Yes vaginal 7 lb 6 oz Female 3 hrs Copl ey 07/01/23 40 No Yes vaginal 8 lb Female 3hrs 32min Tanvi forrest CNM Delivery Date: 12/13/15 Last Updated by: Roxi Cruz GDM diet controlled, spont labor, pushed 3 hrs, unmedicated labor, not a good experience, [place] Delivery Date: 05/23/17 Last Updated by: Roxi Cruz Fast , a good experience, [facility] Delivery Date: 07/01/23 Last Updated by: Roxi Cruz Elective induction, nml October Time Spent with Patient Time Spent with Patient: 45-69 minutes Time was spent: preparing to see the patient(eg.review tests), obtaining and/or reviewing separately otained hiistory, ordering medications,tests, procedures, referring, communicating with other health acute care nursing assistant, indepentently interpreting results, counseling the patient and care coordination
[2024-06-18] MEDS: Ondansetron O.D.T. 4 MG TABEF PO (23:16)
--- NOTE | 2024-06-19 03:49 | NUR.NOTE ---
Nursing Note: Ambulance transfer to [facility] for labor with twin gestation. Ambulance departed on 06/18/2024 at 2332. Throughout the transfer heart rate doppler tones were performed every fifteen minutes. Doppler tones remained between 130's-160's for both baby A and baby B. Vital signs were also performed every 15 minutes which remained stable throughout the transfer. Patient began having contractions every 2-5 minutes lasting 50-100 seconds, which palpated to be moderate. Arrived to [facility] center at 0120 where their team took over care.
== END 2024-06-18 23:32 | disposition short-term general hospital (02) | DRG 833 ==
LOC: BCD 06-19 09:51 → OBS 06-19 09:51
PROVIDERS: Admitting Provider Obstetrics & Gynecology Gynecology; PCP Family Medicine; Visit Provider Obstetrics & Gynecology Gynecology
DX: O42.913 Preterm premature rupture of membranes, unspecified as to length of time between rupture and onset of labor, third trimester (principal); O30.043 Twin pregnancy, dichorionic/diamniotic, third trimester; O24.419 Gestational diabetes mellitus in pregnancy, unspecified control; Z3A.34 34 weeks gestation of pregnancy; O35.HXX1 Maternal care for other (suspected) fetal abnormality and damage, fetal lower extremities anomalies, fetus 1; O99.343 Other mental disorders complicating pregnancy, third trimester; F41.8 Other specified anxiety disorders; O99.613 Diseases of the digestive system complicating pregnancy, third trimester; O09.73 Supervision of high risk pregnancy due to social problems, third trimester; K21.9 Gastro-esophageal reflux disease without esophagitis
CPT/HCPCS: 80053; 84112; 86850; 86900; 86901; 96360; 96365; 59025; 82565; 84156; 85025; 87081; G0378; J0690; J1815

== ENCOUNTER 2024-10-06 09:26 | Outpatient (CLI) | payer MEDICAID, SELFPAY | END 2024-10-06 09:27 | disposition home or self-care (01) | LOC: LBO 09:26 | PROVIDERS: PCP Family Medicine; Visit Provider Obstetrics & Gynecology | DX: N91.0 Primary amenorrhea (principal) | CPT/HCPCS: 36415; 84702 ==

== ENCOUNTER 2024-10-06 11:45 | Outpatient (CLI) | payer MEDICAID, SELFPAY ==
--- NOTE | 2024-10-06 11:45 | DI.US_ITS ---
Exam(s) US OB 1ST TRIMESTER EXAM: US OB 1ST TRIMESTER CLINICAL HISTORY: dating, r/o molar due to high hcg, Z34.90. TECHNIQUE: First trimester obstetrical ultrasound was performed. COMPARISON: US POCUS EXAM from 10/06/2024 FINDINGS: There is an intrauterine gestational sac which contains a yolk sac and viable pole which exhibi ts heart rate of 164 bpm. Yolk sac diameter is 4 mm. [employer]-rump length measurement is 18 mm, corresponding to weeks and 2 days gestational age. There is no evidence of obvious subchorionic hemorrhage. Maternal ovaries: Right ovary measures 3.2 x 2.0 x 2.9 cm. Left ovary measures 2.6 x 1.3 x 2.6 cm There is no fluid in the cul-de-sac and adnexal regions. IMPRESSION:: Single viable intrauterine gestation which is approximately 8 weeks and 2 days gestatio nal age by crown rump length measurement, implying LEOBARDO of 05/16/2025, 2020. There is no evidence of subchorionic hemorrhage. No abnormal adnexal findings. There is no free fluid evident in the cul-de-sac. DATA REPOSITORY:
== END 2024-10-06 12:05 ==
LOC: DI 11:46
PROVIDERS: PCP Family Medicine; Visit Provider Obstetrics & Gynecology
DX: Z34.91 Encounter for supervision of normal pregnancy, unspecified, first trimester (principal); Z3A.08 8 weeks gestation of pregnancy
CPT/HCPCS: 76801

== ENCOUNTER 2024-10-17 10:54 | Outpatient (CLI) | payer MEDICAID, SELFPAY ==
[2024-10-17 12:11] LABS: HCG Quant, Pregnancy 4685 mIU/mL (1-3)
== END 2024-10-17 10:55 | disposition home or self-care (01) ==
LOC: LBO 10:55
PROVIDERS: PCP Family Medicine; Visit Provider Obstetrics & Gynecology
DX: N93.9 Abnormal uterine and vaginal bleeding, unspecified (principal)
CPT/HCPCS: 36415; 84702

== ENCOUNTER 2024-12-08 18:19 | Emergency (ER) | payer MEDICAID, SELFPAY ==
[2024-12-08 18:31] VITALS: BP 158/85; PULSE 77; RESP 16; TEMP 36.6; O2SAT 100
[2024-12-08 18:51] LABS: Glucose Negative (Negative)
[2024-12-08 18:58] LABS: C & S Indicated? No; WBC Negative HPF (0-5)
[2024-12-08 20:06] VITALS: BP 152/68; PULSE 66; RESP 22; TEMP 37; O2SAT 97
--- NOTE | 2024-12-08 22:24 | ED.GENADUL_ITS ---
Discharge Plan Disposition Patient Disposition: Home Condition: Stable Discharge Details Clinical Impression: Pelvic pain Primary Care Provider: Adelita Marr ED Provider: Sharon Kang Home Meds and New Rx's Prescriptions: Continued citalopram [Celexa] 10 mg tablet 20 mg PO DAILY Qty: 60 3RF Discontinued Kyleena 17.5 mcg/24 hr (5 yrs) 19.5 mg intrauterine device 1 device intrauterine ONCE Rx Instructions: as a single dose Discharge Instructions Instructions: Pelvic Pain ED Additional Instructions: please follow-up with weatherization field technician this week we have removed your IUD, please follow-up and be sure to use protect and start oral contraceptive pill you will likely have increased bleeding tonight and this week as we removed the IUD today schedule your ultrasound and return earlier should you have fever or worsening pain Referrals: Joana Carmen MD [ [facility] STAFF PHYSICIAN, Obstetrics] Adelita Marr [Primary Care Provider, Medicine] Discharge Orders Other Ambulatory Orders: US pelvis (Routine) Timeframe: 2 Days Facility: [facility] - Location: DIAGNOSTIC IMAGING Ordered By: Sharon Kang [facility] General Date/Time Provider Initiated Documentation: 12/08/24 18:19 . HPI Narrative: 29-year-old female with lower abdominal cramping after intercourse 2 days ago. IUD placed 8 weeks ago, concerned it has dislodged. Reports bleeding and sharp positional pain. No chance of , fever, chills, upper abdominal pain, nausea, or vomiting. 5 months following vaginal delivery, doing well. Related Data Home Medications ?Medication ?Instructions ?Recorded ?Confirmed citalopram 10 mg tablet (Celexa) 20 mg (2 x 10 mg) PO DAILY #60 tabs 11/17/24 12/08/24 Previous Rx's ?Medication ?Instructions ?Recorded citalopram 10 mg tablet (Celexa) 20 mg (2 x 10 mg) PO DAILY #60 tabs 11/17/24 Allergies Allergy/AdvReac Type Severity Reaction Status Date / Time Penicillins Allergy Unknown Skin Rash Unverified 12/08/24 18:37 General Stated Complaint: PRICING INTERN ANGELIC: 3 Exam Narrative Exam Narrative: General Appearance: Alert, oriented, no acute distress. Vital signs: Within normal limits. HEENT: Within normal limits. Respiratory: Within normal limits. Gastrointestinal: No abdominal tenderness, mild suprapubic tenderness. Genitourinary: Female, Pelvic exam: IUD strings in place, minimal bleeding, no significant cervical motion tenderness, no abnormal vaginal discharge. Skin: Warm and dry, no rash. Neurological: Normal. Course Vital Signs Vital signs: Vital Signs Temperature 36.6 C 12/08/24 18:31 Pulse 77 12/08/24 18:31 Respiratory Rate 16 12/08/24 18:31 Blood Pressure 158/85 H 12/08/24 18:31 Pulse Oximetry 100 12/08/24 18:31 Temperature 37 C 12/08/24 20:06 Temperature Source Oral 12/08/24 18:31 Pulse 66 12/08/24 20:06 Respiratory Rate 22 12/08/24 20:06 Blood Pressure 152/68 H 12/08/24 20:06 Blood Pressure Position Sitting 12/08/24 18:31 Pulse Oximetry 97 12/08/24 20:06 Oxygen Delivery Method Room Air 12/08/24 18:31 Oxygen Flow Rate 0 12/08/24 18:31 Pain Level 7 12/08/24 20:06 Lab/Test Results Lab/Test Results: 12/08/24 19:54 Vaginal Vaginitis Screen - Final Laboratory Tests Range/Units 12/08/24 18:44 Urine Color (Yellow) Yellow Urine Clarity (Clear) Clear Urine pH (5-8) 6.0 Ur Specific [place] (1.005-1.025) 1.010 Urine Protein (Neg-Trace) mg/dL Negative Urine Ketones (Negative) mg/dL Negative Urine Blood (Negative) Moderate H Urine Nitrite (Negative) Negative Urine Bilirubin (Negative) Negative Urine Urobilinogen (Up to 0.2) mg/dL 0.2 Ur Leukocyte Esterase (Negative) Negative Urine RBC (0-2) HPF 3-5 H Urine WBC (0-5) HPF Negative Ur Epithelial Cells (Negative) HPF Few Urine Crystals (Negative) HPF Negative Urine Bacteria (Negative) HPF Negative Urine Mucus (Negative) Negative Ur Culture Indicated? No Urine Glucose (Negative) mg/dL Negative POC- Test(urine) Negative Medical Decision Making Results:- Urinalysis: - Negative - Blood consistent with bleeding - test: - Negative Procedure: Procedure Performed IUD removal Estimated Blood Loss No significant bleeding Initial Assessment: 29-year-old female with lower abdominal cramping and concern for IUD dislodgement. Differential Diagnosis: - Low suspicion for ectopic with negative test and symptoms for the past 2 days. - Low suspicion for ovarian torsion or any other significant abnormality. ED Course: - Pelvic exam performed, IUD strings in place. - IUD removed using migell's forceps, patient tolerated without incident, no significant bleeding. - Urinalysis showed blood consistent with patient's bleeding. - Negative test. - Tests for GC, chlamydia, and vaginal ordered. - Outpatient pelvic ultrasound ordered for Wednesday. - Patient discharged home in stable condition with stable vitals. Final Assessment: Patient presented with lower abdominal cramping and concern for IUD dislodgement. IUD was removed, and patient showed improvement in sympt oms. Low suspicion for ectopic and ovarian torsion. Clinical Impression: - Lower abdominal cramping - IUD dislodgement Disposition: - Discharge: Home, stable condition, follow up with PRICING INTERN, return if symptoms worsen or new symptoms develop. - Follow-Up: Pelvic ultrasound on Wednesday, recheck urinalysis in outpatient setting. Patient Education: Use alternative contraception. MDM Components Evaluation: - Number of Differential Diagnoses or Management Options: Ectopic , ovarian torsion. - Amount and Complexity of Data Reviewed: Urinalysis, test, pelvic exam, tests for GC, chlamydia, and vaginal, outpatient pelvic ultrasound. - Risk of Complication and Morbidity or Mortality: Low risk based on negative test and clinical findings. PFSH All Active Problems (Updated 12/08/24 @ 19:50 by VANESSA Lester) Pelvic pain (Acute) Other specified housing or economic circumstances (Acute) Depression (Chronic) GERD (gastroesophageal reflux disease) (Chronic) Other social stressor (Acute) Financial insecurity (Acute) Anxiety and depression (Chronic) Medical History (Updated 12/08/24 @ 19:50 by VANESSA Lester) Presence of IUD Kyleena placed immediately s/p D&C 10/12/24 Club foot of fetus affecting antepartum care of mother Right foot, twin A Penicillin adverse reaction Surgical History (Updated 10/17/24 @ 10:19 by Joana Carmen MD) [place] Family History (Updated 01/07/24 @ 14:50 by Kassy Pichardo CNM) Mother Depression Anxiety Pre-eclampsia, delivered Sister Pre-eclampsia, delivered Social History Smoking/Tobacco Use Status: Never Smoking risk assessment performed?: Yes Alcohol Intake: current Alcohol Intake frequency: holidays/special occasions only Drug use: Never Household members: family Housing: house Number of Children: 2 current occupation: [employer] Architect Sexually active: Yes Do you think of yourself as: straight/heterosexual Current gender identity: female Do you feel safe at home: Yes Do you feel safe in your relationship?: Yes Female Reproductive History Menstrual control method: none History History 5 Para 4 Hx # Term Pregnancies 4 Multiple births 0 Hx # Pregnancies 0 Ectopic pregnancies 0 AB induced 0 Hx Number of Living Children 5 AB spontaneous 0 Past Pregnancies Del. Date GA/Weeks # Preg Succ Route Wgt Sex Labor Lgth Anesth esia Location [facility] 12/13/15 39 No Yes vaginal 2948.35 g Female >24 hrs No [place] 05/23/17 40 No Yes vaginal 3345.244 g Female 3 hrs [employer] Maintenance Technician love 07/01/23 40 No Yes vaginal 3628.739 g Female 3hrs 32min OSWALD Serra 06/19/24 34 Yes Yes: di-di twins vaginal 2150 g Male [facility] 06/19/24 34 Yes: di-di twins Yes vaginal 2290 g Female [facility] 10/12/24 8 No No [facility] [place] Delivery Date: 12/13/15 Last Updated by: Roxi Cruz GDM diet controlled, spont labor, pushed 3 hrs, unmedicated labor, not a good experience, [place] Delivery Date: 05/23/17 Last Updated by: Roxi Cruz Fast , a good experience, [facility] Delivery Date: 07/01/23 Last Updated by: Roxi Cruz Elective induction, nml October Delivery Date: 06/19/24 Last Updated by: Deidra Bassett RN GDM Delivery Date: 06/19/24 Last Updated by: Deidra Bassett RN GDM Delivery Date: 10/12/24 Last Updated by: Joana Carmen MD [facility]
[2024-12-12 13:20] LABS: Chlamydia Result Invalid (Negative); GC Result Invalid (Negative)
== END 2024-12-08 20:08 | disposition home or self-care (01) ==
PROVIDERS: Emergency Medicine; Emergency Provider Physician Assistant; PCP Family Medicine
DX: R10.2 Pelvic and perineal pain (principal); Z97.5 Presence of (intrauterine) contraceptive device
CPT/HCPCS: 81025; 87491; 87591; 99283; 81003; 81015; 87480; 87510; 87660

== ENCOUNTER 2025-02-22 18:45 | Emergency (ER) | payer MEDICAID, SELFPAY ==
[2025-02-22 18:46] VITALS: BP 183/96; PULSE 71; RESP 16; TEMP 36.5; O2SAT 99
--- NOTE | 2025-02-22 18:56 | W.ED.GENAD ---
Discharge Plan Disposition Patient Disposition: Home Condition: Stable Discharge Details Clinical Impression: Painful urination, Bacterial vaginosis Primary Care Provider: Adelita Marr ED Provider: Edgardo Oviedo Home Meds and New Rx's Prescriptions: New metronidazole 500 mg tablet 500 mg PO BID 7 Days Qty: 14 0RF Discontinued citalopram [Celexa] 10 mg tablet 20 mg PO DAILY Qty: 60 3RF Discharge Instructions Additional Instructions: You were positive for the bacteria that causes bacterial vaginosis. There was no signs of a urinary tract infection. Take the antibiotic as prescribed. Follow-up with either your primary care provider or the [facility] if your symptoms are not improving. If you feel more ill or have new symptoms such as high fevers return to the emergency department for reevaluation. HPI General Mode of arrival: ambulatory. Date/Time Provider Initiated Documentation: 02/22/25 18:47. Limitations to Documentation: no limitations. Information obtained by: patient. History of Present Illness 30 year old F presents to the emergency department with the chief complaint of ?uti, described as moderate, Patient started experiencing this day(s) (2) and it has been constant. No relieving factors improve symptom(s), No exacerbating factors reported . Patient notes denies chest pain, fever/chills, nausea/vomiting and shortness of breath. Patient did receive the following treatments prior to arrival, none Related Data Home Medications ?Medication ?Instructions ?Recorded ?Confirmed metronidazole 500 mg tablet 500 mg PO BID 7 days #14 tabs 02/22/25 Previous Rx's ?Medication ?Instructions ?Recorded metronidazole 500 mg tablet 500 mg PO BID 7 days #14 tabs 02/22/25 Allergies Allergy/AdvReac Type Severity Reaction Status Date / Time Penicillins Allergy Unknown Skin Rash Verified 02/22/25 18:50 General Stated Complaint: Urinary ANGELIC: 3 Review of Systems All systems reviewed & are unremarkable except as noted in HPI and below Constitutional Constitutional: Denies chills, Denies fever(s) and Denies weakness Cardiovascular Cardiovascular: Denies chest pain and Denies dyspnea Respiratory Respiratory: Denies dyspnea Gastrointestinal Gastrointestinal: Denies vomiting Genitourinary Genitourinary: Reports dysuria Neurologic Neurologic: Denies weakness Exam Const General: no acute distress Orientation: alert HENMT Head: normal to inspection Ears: external ears normal General nose exam: external nose normal Mouth: moist mucous membranes Eyes General: appearance normal, both eyes and all related structures Neck Neck: normal visual inspection Resp Effort & Inspection: normal respiratory effort and able to speak in complete sentences Cardio Rate: regular rate GI Palpation: soft and nontender Back/Spine/Pelvis Back: no CVA tenderness Skin General skin exam: no rashes or lesions noted Neuro General: patient alert and patient oriented x3 Extrem General: normal to inspection Psych Mental Status: mental status grossly normal Course Vital Signs Vital signs: Vital Signs Temperature 36.5 C 02/22/25 18:46 Pulse 71 02/22/25 18:46 Respiratory Rate 16 02/22/25 18:46 Blood Pressure 183/96 H 02/22/25 18:46 Pulse Oximetry 99 02/22/25 18:46 Temperature 36.5 C 02/22/25 18:46 Temperature Source Temporal Artery Scan 02/22/25 18:46 Pulse 71 02/22/25 18:46 Respiratory Rate 16 02/22/25 18:46 Blood Pressure 183/96 H 02/22/25 18:46 Blood Pressure Position Sitting 02/22/25 18:46 Pulse Oximetry 99 02/22/25 18:46 Oxygen Delivery Method Room Air 02/22/25 18:46 Oxygen Flow Rate 0 02/22/25 18:46 Pain Level 3 02/22/25 18:46 Medical Decision Making 30-year-old female comes in with 2 days of painful urination and lower abdominal discomfort in the area of the bladder. Denies any fevers or vomiting. She has soft nontender abdomen, no CVA tenderness. No vaginal bleeding or discharge but has had some vaginal irritation. Symptoms seem consistent with likely cystitis, will check a UA and a [id number] urine test along with vag path and check cbc and bmp. cbc and cmp unremarkable, vaginal path scren is positive for gardenerella so will start metronidazole. UA unremarkable. She will f/u with pcp or obgyn and return precautions given Differential Diagnosis Differential Diagnosis: Cystitis, urethritis PFSH All Active Problems (Updated 02/22/25 @ 21:29 by Edgardo Oviedo MD) Bacterial vaginosis (Acute) Painful urination (Acute) Other specified housing or economic circumstances (Acute) Depression (Chronic) GERD (gastroesophageal reflux disease) (Chronic) Other social stressor (Acute) Financial insecurity (Acute) Anxiety and depression (Chronic) Medical History (Updated 02/22/25 @ 21:29 by Edgardo Oviedo MD) Presence of IUD Kyleena placed immediately s/p D&C 10/12/24 Club foot of fetus affecting antepartum care of mother Right foot, twin A Penicillin adverse reaction Surgical History (Updated 10/17/24 @ 10:19 by Joana Carmen MD) History of D&C [facility] [place] 10/12/24 Family History (Updated 01/07/24 @ 14:50 by Kassy Pichardo CNM) Mother Depression Anxiety Pre-eclampsia, delivered Sister Pre-eclampsia, delivered Social History Smoking/Tobacco Use Status: Never Smoking risk assessment performed?: Yes Alcohol Intake: current Alcohol Intake frequency: holidays/special occasions only Drug use: Never Household members: family Housing: house Number of Children: 2 current occupation: Shop Helper Sexually active: Yes Do you think of yourself as: straight/heterosexual Current gender identity: female Do you feel safe at home: Yes Do you feel safe in your relationship?: Yes Female Reproductive History Menstrual control method: none History History 5 Para 4 Hx # Term Pregnancies 4 Multiple births 0 Hx # Pregnancies 0 Ectopic pregnancies 0 AB induced 0 Hx Number of Living Children 5 AB spontaneous 0 Past Pregnancies Del. Date GA/Weeks # Preg Succ Route Wgt Sex Labor Lgth Anesthesia Location [facility] 12/13/15 39 No Yes vaginal 2948.35 g Female >24 hrs [facility] 05/23/17 40 No Yes vaginal 3345.244 g Female 3 hrs [facility] 07/01/23 40 No Yes vaginal 3628.739 g Female 3hrs 32min [facility] 06/19/24 34 Yes Yes: di-di twins vaginal 2150 g Male [facility] 06/19/24 34 Yes: di-di twins Yes vaginal 2290 g Female [facility] 10/12/24 8 No No [facility] [place] family planning Delivery Date: 12/13/15 Last Updated by: Roxi Cruz GDM diet controlled, spont labor, pushed 3 hrs, unmedicated labor, not a good experience, [facility] Delivery Date: 05/23/17 Last Updated by: Roxi Cruz Fast , a good experience, [facility] Delivery Date: 07/01/23 Last Updated by: Roxi Cruz Elective induction, nml October Delivery Date: 06/19/24 Last Updated by: Deidra Bassett RN GDM Delivery Date: 06/19/24 Last Updated by: Deidra Bassett RN GDM Delivery Date: 10/12/24 Last Updated by: Joana Carmen MD ETOP
[2025-02-22 19:23] LABS: Glucose Negative (Negative)
[2025-02-22 20:08] LABS: HCT 44.9 % (36.0-46.0); HGB 14.8 g/dL (11.2-15.7); MCH 27.7 pg (27.0-33.0); MCHC 33.0 % (32.0-36.0); MCV 84 fL (80-95); MPV 9.4 fL (8.0-11.0); Platelet Count 283 10^3/uL (130-400); RBC 5.35 10^6/uL (3.93-5.22); RDW 13.5 % (11.7-14.6); RDW-SD 41.2 fL; WBC 7.91 10^3/uL (4.4-10.8)
[2025-02-22 20:18] LABS: Anion Gap 12.3 mmol/L (3-11); BUN 17 mg/dL (7-18); CO2 28.7 mmol/L (21.0-32.0); Calcium 10.1 mg/dL (8.5-10.1); Chloride 100 mmol/L (98-107); Estimated GFR 87.11 (mL/min/1.73m2); Glucose 90 mg/dL (74-106); Potassium 4.1 mmol/L (3.5-5.1); Sodium 141 mmol/L (136-145)
[2025-02-22 21:37] VITALS: BP 151/96; PULSE 68; TEMP 36.4
[2025-02-22] MEDS: metroNIDAZOLE 500 MG TAB PO (21:51)
[2025-02-22 21:53] VITALS: BP 184/78; PULSE 78; RESP 14; TEMP 36.6; O2SAT 99
== END 2025-02-22 21:55 | disposition home or self-care (01) ==
PROVIDERS: Emergency Provider Emergency Medicine; PCP Family Medicine
DX: N76.0 Acute vaginitis (principal); B96.89 Other specified bacterial agents as the cause of diseases classified elsewhere; R30.0 Dysuria; I10 Essential (primary) hypertension
CPT/HCPCS: 80048; 81025; 85027; 99283; 81003; 87480; 87510; 87660

== ENCOUNTER 2025-03-12 12:25 | Outpatient (REF) | payer MEDICAID, SELFPAY ==
[2025-03-14 12:41] LABS: Bacterial Vaginosis (BV) Negative (Negative); Candida glabrata Negative (Negative); Candida species group Negative (Negative)
== END 2025-03-12 12:26 | disposition home or self-care (01) ==
LOC: NCHCN 12:25
PROVIDERS: PCP Family Medicine; Visit Provider Nurse Practitioner Family
DX: N89.8 Other specified noninflammatory disorders of vagina (principal)
CPT/HCPCS: 81513; 87481; 87661

== ENCOUNTER 2025-03-14 12:55 | Outpatient (REF) | payer MEDICAID, SELFPAY | END 2025-03-14 12:56 | disposition home or self-care (01) | LOC: LBN 12:55 | PROVIDERS: PCP Family Medicine; Visit Provider Nurse Practitioner Women's Health | DX: N76.0 Acute vaginitis (principal) | CPT/HCPCS: 87480; 87510; 87660 ==